=== PATIENT | male | born 1990 | race Caucasian/White ===

== ENCOUNTER 2018-04-18 08:47 | Emergency (ER) | payer MEDICAID, SELFPAY ==
[2018-04-18] VITALS (33 sets, daily range): BP systolic 114–144; BP diastolic 72–89; PULSE 64–104; RESP 10–20; TEMP 36.6; O2SAT 96–100
[2018-04-18] MEDS: Normal Saline 1,000 ML 1000 ML IV (09:00)
--- NOTE | 2018-04-18 09:18 | ED.GENADUL_ITS ---
Discharge Plan Disposition Patient Disposition: AGAINST MEDICAL ADVICE Condition: Improving Discharge Details Chief Complaint: Dizzy/Sync Clinical Impression: Lightheadedness, Numbness and tingling of right arm Reason For Visit: MING Primary Care Provider: Rocio Begum ED Provider: Nena Orozco Home Meds and New Rx's Prescriptions: Continue sumatriptan succinate [Imitrex] 50 mg tablet 50 mg PO ONCE Qty: 10 RF: 0 buspirone 15 mg tablet 15 mg PO BID Qty: 90 RF: 2 No Action amitriptyline 75 mg tablet 75 mg PO .QHS Qty: 14 RF: 0 Discharge Instructions Instructions: Transient Ischemic Attack (ED), Paresthesia (ED), Near Syncope ( ED) Additional Instructions: You have chosen to leave the emergency department AGAINST MEDICAL ADVICE. The risks of doing so are or permanent disability. You may return to the emergency department anytime if you change your mind. It is extremely important that you make an appointment to be seen by your primary care doctor within the next week in follow-up for this visit. Please return immediately to the emergency department if you develop any new or worsening symptoms or if you become otherwise concerned. Referrals: Rocio Begum MD [Primary Care Provider] - Discharge Data Discharge Date/Time-TO BE ENTERED AT DEPARTURE: 04/18/18 13:15 Medical Decision Making Davi Hope is a 27 y/o man with h/o chronic back pain, bipolar who presented to the emergency department with non-exertional lightheadedness followed by right arm tingling and headache with are on-going. On exam Pt is well and non- toxic appearing. Normal neuro exam. Cardiac murmur previously unknown to Pt. Pt' s father with stroke in 30s and again in 40s. Concern for benign syncope vs atypical CVA/TIA vs metabolic/lyte derangement vs other, low likelhood ACS. Exam /hx not c/w PE, acute aortic process, sepsis. Doubt arrhythmia given continuing sensation of lightheadedness with NSR on monitor. Plan for CT head, EKG, CXR, screening labs, IVF hydration, telemetry, likely MRI. Pt reports symptoms unchanged. CXR, CT head, labs okay. Plan for MRI. Pt requesting d/c to home, states that he feels anxious in hospitals and does not feel like waiting any longer. Lengthy discussion with Pt: risks of leaving prior to MRI, he agrees to stay for this test. MRI completed. Pt again requesting d/c to home. Does not want to stay for repeat trop, scheduling of outpt echo, holter. Lengthy discussion again re: risk of and permanent disability, and Pt continues to wish to go home at this time and would prefer to f/u as outpt. Lengthy discussion re: RTED precautions, that he may RTED at any time if he changes his mind, and importance of outpt f/u with PCP and to have echo. Medical Records Medical records reviewed: Yes I reviewed the patient's medical records. Imaging Data Radiologic Study: Attestation: I personally reviewed and interpreted this imaging study as follows: Radiologist's impression: CT BRAIN: Noncontrast. No priors. A noncontrast cranial CT was performed. The ventricular system is normal in appearance. There is no evidence of an intracranial mass lesion. There is no evidence of a subdural or epidural hematoma. No focal areas of decreased attenuation are seen. CONCLUSION: Normal noncontrast Cranial CT. MRI BRAIN: Routine noncontrast examination. Comparison CT from the same day. The ventricles and sulci are consistent with the patient's age. There is normal signal in the brain parenchyma. The diffusion weighted images are unremarkable. No intracranial hemorrhage is seen. There is a normal flow void appearance to the [place]. The pituitary gland is unremarkable. No intracranial mass, acute midline shift or mass effect is identified. The visualized paranasal sinuses are clear. IMPRESSION: Normal MRI of the brain. CHEST X-RAY: PA, lateral. Comparison 08/29/15 Heart size and pulmonary vasculature are within normal limits. The lungs are clear. No effusions are seen. No pneumothorax is identified. The bones are intact. IMPRESSION: Normal chest x-ray. Lab Data Lab results reviewed: Yes I reviewed the patient's lab results. ECG Data Attestation: I personally reviewed and interpreted this ECG (s) as follows: Interpretation: EKG shows normal sinus rhythm at 83 with normal axis, normal intervals, no acute ischemic changes, nondiagnostic EKG HPI General Mode of arrival: ambulatory . Date/Time Provider Initiated Documentation: 04/18/18 09:17 . Limitations to Documentation: no limitations . Information obtained by: patient, family, RN notes reviewed and old records reviewed . HPI Narrative: Davi Hope is a 27-year-old man with history of bipolar and chronic back pain presenting to the emergency department with episode of lightheadedness. Pt reports that he was at work, walking when he developed nausea, felt very lightheaded like he was going to faint, and squatted down. Pt reports that lightheadedness gradually improved, but has persisted somewhat and is currently on-going. He also reports right arm numbness/tingling since the event that is also on-going. He developed headache of gradual onset after event , now moderate. He has had similar headaches several times in the past but without the associated symptoms of lightheadedness/paresthesias. Not the worst headache of his life. He reports that he has been feeling somewhat tired over the past week, but has otherwise been in his usual state of health. Eating and drinking as usual. No recent travel. He has felt lightheaded in the past, but not to the extent he did earlier. He had no LOC. He denies any pain, weakness, speech change, SOB, cough, vomiting, diarrhea. Related Data Home Medications Medication Instructions Recorded Confirmed sumatriptan 50 mg tablet 50 mg PO ONCE #10 tab 02/09/18 04/18/18 buspirone 15 mg tablet 15 mg PO BID #90 tab 02/17/18 04/18/18 amitriptyline 75 mg tablet 75 mg PO .QHS #14 tab 04/22/18 04/22/18 Previous Rx's Medication Instructions Recorded sumatriptan 50 mg tablet 50 mg PO ONCE #10 tab 02/09/18 buspirone 15 mg tablet 15 mg PO BID #90 tab 02/17/18 amitriptyline 75 mg tablet 75 mg PO .QHS #14 tab 04/22/18 Allergies Allergy/AdvReac Type Severity Reaction Status Date / Time morphine Allergy Intermediate Unverified 10/26/17 11:26 General Stated Complaint: Dizzy/Sync MAYRA: 3 Review of Systems Review of Systems Constitutional: denies fevers Eyes: denies eye pain ENT: denies facial pain, dental pain, sore throat Cardiovascular: denies chest pain, edema Respiratory: denies SOB, cough GI: denies abdominal pain, vomiting, diarrhea : denies flank pain MSK: denies back pain, neck pain, arthralgias, myalgias Skin: denies rash Neuro: denies weakness, reports numbness/tingling right arm, lightheadedness, headache PFSH Family History FAMILY HISTORY Essential hypertension Personal history of malignant neoplasm Depression Cerebrovascular accident Social History Smoking/Tobacco Use Status: Current every day Exam Narrative Exam Narrative: Constitutional: well and [id number], pleasant, conversing normally HENT: head atraumatic, normocephalic normal inspection, mucous membranes moist Eyes: conjunctiva normal, sclera normal, pupils 3mm ERRLA, EOMI Neck: no stridor, normal ROM, trachea midline Chest: normal inspection Resp: normal work of breathing, LCTAB Cardio: normal rate, normal rhythm, 3/6 systolic murmur GI: abdomen soft, non-tender, non-distended Back: normal inspection, no rash Skin: warm, dry, normal color, no rash Neuro: alert, not altered, normal tone, insurance adjustor 2-12 intact, motor 5/5 throughout, no pronator drift, normal sensation to light touch b/l UEs, nl finger/nose and heel/dai, nl speech Ext: no edema Psych: normal mood, normal affect, normal behavior Course Vital Signs Temperature 36.6 C 04/18/18 08:55 Pulse 90 04/18/18 08:55 Respiratory Rate 16 04/18/18 08:55 Blood Pressure 134/72 04/18/18 08:55 Pulse Oximetry 100 04/18/18 08:55 Temperature 36.6 C 04/18/18 08:55 Temperature Source Skin 04/18/18 08:55 Pulse 90 04/18/18 08:55 Respiratory Rate 16 04/18/18 09:00 Respiratory Effort 04/18/18 09:00 Respiratory Depth Normal 04/18/18 09:00 Respiratory Pattern Normal 04/18/18 09:00 Blood Pressure 134/72 04/18/18 08:55 Blood Pressure Position Sitting 04/18/18 08:55 Pulse Oximetry 100 04/18/18 08:55 Oxygen Delivery Method Room Air 04/18/18 08:55 Oxygen Flow Rate 0 04/18/18 08:55
--- NOTE | 2018-04-18 09:42 | DI.RAD_ITS ---
SYMPTOM/DIAGNOSIS: NEAR SYNCOPE CHEST X-RAY: PA, lateral. Comparison 08/29/15 Heart size and pulmonary vasculature are within normal limits. The lungs are clear. No effusions are seen. No pneumothorax is identified. The bones are intact. IMPRESSION: Normal chest x-ray.
--- NOTE | 2018-04-18 09:43 | DI.CT_ITS ---
SYMPTOM/DIAGNOSIS: RT ARM NUMBNESS, NEAR SYNCOPE CT BRAIN: Noncontrast. No priors. A noncontrast cranial CT was performed. The ventricular system is normal in appearance. There is no evidence of an intracranial mass lesion. There is no evidence of a subdural or epidural hematoma. No focal areas of decreased attenuation are seen. CONCLUSION: Normal noncontrast Cranial CT. The findings were discussed with the Emergency Department on the date of the examination.
[2018-04-18 10:02] LABS: Absolute Basophil Count 0.06 k/cumm (0.0-0.2); Absolute Eosinophil Count 0.27 k/cumm (0.0-0.7); Absolute Lymphocyte Count 1.66 k/cumm (1.2-3.4); Absolute Monocyte Count 0.64 k/cumm (0.11-0.7); Absolute Neutrophil Count 3.91 k/cumm (1.2-6.7); Basophils % 0.9; Eosinophils % 4.1; HCT 46.5 % (40.0-50.0); HGB 15.6 g/dL (13.5-17.5); Lymphocytes % 25.4; Mean Corp. HGB Concentration 33.5 g/dL (32.0-36.0); Mean Corpuscular Hemoglobin 30.5 pg (27.0-33.0); Mean Corpuscular Volume 90.8 fL (80-95); Mean Platelet Volume 10.9 fL (8.0-11.0); Monocytes % 9.8; Neutrophils % 59.8; Platelet Count 250 x1000/uL (130-400); RBC 5.12 m/cumm (4.50-6.00); RBC Distribution Width 12.5 % (11.8-14.1); White Blood Cell Count 6.54 k/cumm (4.4-10.8)
[2018-04-18 10:23] LABS: ALT 45 U/L (12-78); AST 18 U/L (15-37); Albumin 4.1 g/dL (3.4-5.0); Alkaline Phosphatase 64 U/L (46-116); Anion Gap 8.6 mmol/L (3-11); BUN 8 mg/dL (7-18); Bilirubin, Total 0.3 mg/dL (0.2-1.0); CO2 30.4 mmol/L (21.0-32.0); CREATININE 1.04 mg/dL (0.70-1.30); Calcium 8.7 mg/dL (8.5-10.1); Chloride 103 mmol/L (98-107); Glucose 96 mg/dL (70-100); Sodium 142 mmol/L (136-145); Total Protein 7.2 g/dL (6.4-8.2)
[2018-04-18 10:30] LABS: Troponin I < 0.02 ng/mL (0.00-0.06)
--- NOTE | 2018-04-18 11:46 | DI.MRI_ITS ---
SYMPTOM/DIAGNOSIS: RUE NUMBNESS MRI BRAIN: Routine noncontrast examination. Comparison CT from the same day. The ventricles and sulci are consistent with the patient's age. There is normal signal in the brain parenchyma. The diffusion weighted images are unremarkable. No intracranial hemorrhage is seen. There is a normal flow void appearance to the [place]. The pituitary gland is unremarkable. No intracranial mass, acute midline shift or mass effect is identified. The visualized paranasal sinuses are clear. IMPRESSION: Normal MRI of the brain. The findings were discussed with Dr. Orozco of the Emergency Department on the date of the examination.
--- NOTE | 2018-04-19 10:58 | NUR.NOTE ---
Nursing Note: Reached out to patient's PCP re: AMA. Rowley at has already spoken with patient and he has an appointment to be seen on 04/22/18. LP
== END 2018-04-18 13:15 | disposition left against medical advice (07) ==
LOC: ER 13:16
PROVIDERS: Emergency Provider Student in an Organized Health Care Education/Training Program; PCP Family Medicine
DX: R42 Dizziness and giddiness (principal); R20.2 Paresthesia of skin; R51 Headache; Z53.29 Procedure and treatment not carried out because of patient's decision for other reasons
CPT/HCPCS: 36415; 80053; 93005; 96365; 96366; 99285; 70450; 70551; 71046; 84484; 85025; 93010; 99284

== ENCOUNTER 2018-12-28 01:34 | Emergency (ER) | payer MEDICAID, SELFPAY ==
--- NOTE | 2018-12-28 01:39 | ED.GENADUL_ITS ---
Discharge Plan Disposition Patient Disposition: HOME Condition: Good Discharge Details Chief Complaint: Abd Prob Clinical Impression: Enteritis Primary Care Provider: Rocio eBgum ED Provider: Yaya Ibarras and New Rx's Prescriptions: Continued sumatriptan succinate [Imitrex] 50 mg tablet 50 mg PO ONCE Qty: 10 RF: 0 buspirone 15 mg tablet 15 mg PO BID Qty: 90 RF: 2 Discharge Instructions Instructions: Abdominal Pain (ED) Additional Instructions: Laboratory studies were good tonight. CT scan is suggestive of enteritis which is likely viral in nature and should get better over the next day or 2. Drink plenty of fluids to stay hydrated and stick with a bland diet. Use Tylenol if needed for pain. Follow-up with primary care end of week if not getting better. Return to ED if you have bloody diarrhea, worsening abdominal pain, persistent vomiting, high fevers. Referrals: Rocio Begum MD [Primary Care Provider] - Medical Decision Making Young male presenting with left-sided abdominal/back pain. No urinary symptoms. No fever. Belly is actually fairly benign. Maybe some mild left CVAT. presentation not really renal colic in nature as he has more abdominal pain than back. Seems uncomfortable. Will place IV and check labs. Fluids, Zofran and Toradol ordered. CT scan ordered. Laboratory studies unremarkable. White count is normal. Potassium slightly low at 3.4. CT scan essentially unremarkable other than some evidence of some small bowel wall and mucosal thickening on the left side consistent with enteritis. Most likely viral in nature. Less likely related to Crohn's. We will have him drink fluids and stay with a bland diet for the next couple days. Follow-up with primary care at the end of the week if not better. Return to ED for worsening pain, bloody diarrhea, persistent vomiting, high fevers. Lab Data Lab results reviewed: Yes I reviewed the patient's lab results. HPI General Mode of arrival: ambulatory . Date/Time Provider Initiated Documentation: 12/28/18 01:39 . Limitations to Documentation: no limitations . Information obtained by: patient . HPI Narrative: Patient presents to ED with left-sided abdominal pain. Patient reports generalized abdominal pain starting yesterday. More localized to the left side radiating into the back. No radiation of pain into the groin or testicle. No urinary symptoms. Nausea but no vomiting. Some diarrhea this evening. No fever that he is aware of. No travel outside the [place], antibiotic use, sick contacts. Tried eating dinner tonight but really could not just because he had no appetite and it made him nauseated. Unable to sleep tonight so weak he finally came in for evaluation. He has not taken anything at home for pain. Rel ated Data Home Medications Medication Instructions Recorded Confirmed sumatriptan succinate 50 mg tablet 50 mg PO ONCE #10 tab 02/09/18 11/24/18 buspirone 15 mg tablet 15 mg PO BID #90 tab 10/13/18 11/24/18 Previous Rx's Medication Instructions Recorded sumatriptan succinate 50 mg tablet 50 mg PO ONCE #10 tab 02/09/18 buspirone 15 mg tablet 15 mg PO BID #90 tab 10/13/18 Allergies Allergy/AdvReac Type Severity Reaction Status Date / Time morphine Allergy Intermediate Verified 12/28/18 01:47 General MAYRA: 3 Review of Systems Review of Systems 03/20 Review of Systems completed and is negative except as stated above in HPI (Systems reviewed: Const, Eyes, ENT, Resp, CV, GI, , MSK, Skin, Neuro) [facility] Medical History (Updated 12/28/18 @ 01:47 by Amina Angel) Depression (Chronic) Migraine without aura and without status migrainosus, not intractable (Chronic 01/05/17) Surgical History H/O spinal fusion (Acute) Family History FAMILY HISTORY Essential hypertension Personal history of malignant neoplasm Depression Stroke Social History Smoking/Tobacco Use Status: Current every day Tobacco Type: cigarettes Alcohol Intake: current Alcohol Intake frequency: a few times a month Drug use: Daily Substance use type: marijuana Do you feel safe in your relationship?: Yes Exam Narrative Exam Narrative: Vitals: Afebrile with elevated BP. Const: WDWN male in NAD. HEENT: NC/AT. Normal facial exam. Eyes: Normal conjunctiva and sclera. Neck: Supple. Trachea midline. Lungs: Normal respiratory effort. Lungs are clear. Cor: RRR without murmur/gallop. Good radial pulses. GI: Soft. NT/ND. No guarding or rebound. Back: Left CVAT. Neuro: A+O x 3. CN grossly in tact. Good strength and no focal deficit. Ext: No C/C/E. No deformity or tenderness. Skin: Warm and dry without rash.
[2018-12-28 01:44] VITALS: BP 152/93; PULSE 84; RESP 18; TEMP 37.1; O2SAT 100
[2018-12-28] MEDS: Ketorolac 15 MG/ML VIAL IVP (02:13)
[2018-12-28] MEDS: Lactated Ringers 1,000 ML 200 ML IV (02:13)
[2018-12-28] MEDS: Ondansetron 4 MG/2 ML VIAL IVP (02:13)
[2018-12-28 02:26] LABS: Abs Immature Grans 0.01 k/cumm (0.0-0.09); Absolute Basophil Count 0.08 k/cumm (0.0-0.2); Absolute Eosinophil Count 0.42 k/cumm (0.0-0.7); Absolute Monocyte Count 0.94 k/cumm (0.11-0.7); Absolute Neutrophil Count 5.35 k/cumm (1.2-6.7); Basophils % 0.8; Eosinophils % 4.2; HCT 43.8 % (40.0-50.0); HGB 15.1 g/dL (13.5-17.5); Immature Grans % 0.1; Lymphocytes % 32.7; Mean Corp. HGB Concentration 34.5 g/dL (32.0-36.0); Mean Corpuscular Hemoglobin 30.6 pg (27.0-33.0); Mean Corpuscular Volume 88.7 fL (80-95); Mean Platelet Volume 10.2 fL (8.0-11.0); Monocytes % 9.3; Neutrophils % 52.9; Platelet Count 246 x1000/uL (130-400); RBC 4.94 m/cumm (4.50-6.00); RBC Distribution Width 12.5 % (11.8-14.1)
[2018-12-28] MEDS: Omnipaque 350 MG/ML 100 ML BTL IJ (02:35)
--- NOTE | 2018-12-28 02:35 | DI.CT_ITS ---
SYMPTOMS/DIAGNOSIS: LT SIDE ABD AND BACK PAIN CT SCAN OF THE ABDOMEN AND PELVIS: CT scan of the abdomen and pelvis was performed following the uneventful administration of intravenous contrast material. No acute findings are seen in the lung bases. There may be a small hiatal hernia. The liver is unremarkable. No mass is seen. The portal, superior mesenteric and splenic veins are patent. The gallbladder is negative. There is no biliary ductal dilatation. The pancreas, spleen, adrenal glands, kidneys, ureters and bladder are unremarkable. The reproductive organs are unremarkable. There is mild bowel wall thickening and loops of small bowel in the left abdomen suggesting enteritis. The remainder of the bowel is unremarkable. A normal appendix is present. The aorta is of normal caliber. No significant abdominal or pelvic adenopathy, ascites or pneumoperitoneum is seen. Post surgical changes are seen at L 5 and S 1. No acute osseous abnormality is identified. IMPRESSION: Findings suspicious for enteritis involving small bowel loops in the left abdomen. This may be infectious or inflammatory in nature.
[2018-12-28 02:43] LABS: ALT 30 U/L (12-78); AST 12 U/L (15-37); Albumin 4.1 g/dL (3.4-5.0); Alkaline Phosphatase 65 U/L (46-116); Anion Gap 10.9 mmol/L (3-11); BUN 12 mg/dL (7-18); Bilirubin, Total 0.2 mg/dL (0.2-1.0); CO2 27.1 mmol/L (21.0-32.0); CREATININE 0.98 mg/dL (0.70-1.30); Calcium 8.9 mg/dL (8.5-10.1); Chloride 103 mmol/L (98-107); Glucose 97 mg/dL (70-100); Lipase 61 U/L (73-393); Potassium 3.4 mmol/L (3.5-5.1); Sodium 141 mmol/L (136-145); Total Protein 7.5 g/dL (6.4-8.2)
[2018-12-28 03:13] LABS: Bilirubin Negative (Negative); Blood Negative (Negative); Clarity Clear (Clear); Glucose Negative (Negative); Ketones Negative (Negative); Leukocyte Esterase Negative (Negative); Nitrite Negative (Negative); Specific Gravity 1.015 (1.005-1.025); Urobilinogen 0.2 EU/dL (Up TO 0.2)
--- NOTE | 2018-12-28 03:26 | DI.VRAD_ITS ---
EXAM: CT Abdomen and Pelvis With Contrast EXAM DATE/TIME: 12/28/2018 2:02 AM CLINICAL HISTORY: 28 years old, male; Abdominal pain; Localized; Prior surgery; Surgery date: 6+ months; Surgery type: Back surgery; Patient HX: Left sided abdomen pain since Wednesday increasing in severity TECHNIQUE: Imaging protocol: Axial computed tomography images of the abdomen and pelvis with intravenous contrast. Coronal and sagittal reformatted images were created and reviewed. Radiation optimization: All CT scans at this facility use at least one of these dose optimization techniques: automated exposure control; mA and/or kV adjustment per patient size (includes targeted exams where dose is matched to clinical indication); or iterative reconstruction. Contrast material: OMNIPAQUE 350; Contrast volume: 100 ml; Contrast route: IV RAC; COMPARISON: No relevant prior studies available. FINDINGS: Liver: Normal. No mass. Gallbladder and bile ducts: Normal. No calcified stones. No ductal dilation. Pancreas: Normal. No ductal dilation. Spleen: Normal. No splenomegaly. Adrenals: Normal. No mass. Kidneys and ureters: Normal. No hydronephrosis. Stomach and bowel: Lack of oral contrast limits evaluation of gastrointestinal tract. Hiatal hernia. There is no evidence of intestinal perforation or obstruction. Small bowel wall and mucosal thickening in left abdomen. Appendix: No evidence of appendicitis. Intraperitoneal space: No free intraperitoneal gas. Vasculature: Normal. No abdominal aortic aneurysm. Lymph nodes: Normal. No enlarged lymph nodes. Bladder: Unremarkable as visualized. Reproductive: Unremarkable as visualized. Bones/joints: Status post L5-S1 posterior spinal fusion. Surgical hardware appears intact. Mild anterolisthesis of L5 on S1. Soft tissues: Unremarkable. IMPRESSION: Small bowel wall and mucosal thickening in left abdomen consistent with the presence of enteritis which could have an inflammatory or infectious etiology. Hiatal hernia. Dictated and Authenticated by: Derek Velasquez MD. Ordering:CARMEN Javier MD
[2018-12-28 03:31] VITALS: BP 117/72; PULSE 67; RESP 16; O2SAT 94
== END 2018-12-28 03:41 | disposition home or self-care (01) ==
PROVIDERS: Emergency Provider Emergency Medicine; PCP Family Medicine
DX: R10.12 Left upper quadrant pain (principal); R11.0 Nausea; K52.9 Noninfective gastroenteritis and colitis, unspecified
CPT/HCPCS: 36415; 80053; 83690; 96361; 96374; 96375; 99285; 74177; 81003; 85025; J1885; J2405; J3490

== ENCOUNTER 2019-02-14 09:04 | Emergency (ER) | payer OTHER, SELFPAY ==
[2019-02-14 09:10] VITALS: BP 144/89; PULSE 83; RESP 16; TEMP 33.6; O2SAT 100
--- NOTE | 2019-02-14 09:22 | ED.GENADUL_ITS ---
Discharge Plan Disposition Patient Disposition: HOME Condition: Stable Discharge Details Chief Complaint: Orthopedic Clinical Impression: Traumatic arthropathy, right hand Primary Care Provider: Rocio Begum ED Provider: Saurav Baker Home Meds and New Rx's Prescriptions: No Action sumatriptan succinate [Imitrex] 50 mg tablet 50 mg PO ONCE Qty: 10 RF: 0 buspirone 15 mg tablet 15 mg PO BID Qty: 90 RF: 2 Discharge Instructions Instructions: Arthralgia (ED) Additional Instructions: For pain control you may continue to apply ice, rest the extremity, leave splinting on, and elevate. You may take 600mg of ibuprofen along with 1000mg of Tylenol every 6 hours as needed for pain. Please rest the extremity over the next couple days and slowly advance activity as tolerated by pain and discomfort. Call the orthopedic office for arrangement of follow-up appointment and further reassessment Stand Alone Forms: Work Release Referrals: Wyatt Jones MD [ [facility] STAFF PHYSICIAN] - (Call the office for arrangement of follow-up appointment) Discharge Data Discharge Date/Time-TO BE ENTERED AT DEPARTURE: 02/14/19 10:44 Medical Decision Making Patient presenting to the emergency department chief complaint of right hand injury. Patient reports that he was at work approximately an hour prior to arrival a heavy aluminum casting fell and struck his right hand. Since then he has had decreased sensation/numbness to his fifth digit, pain with movement of the fingers. Patient denies any other injury or trauma. Physical exam shows significant amount of dorsal hand swelling, slight abrasion over the fourth metacarpal, decreased sensation from the PIP through the dorsal hand over the fourth and fifth digits and to surrounding area of trauma, cap refill appropriate but patient does have significant decreased of movement of the fifth digit. Exam is otherwise unremarkable. Plan to perform radiological imaging for evaluation of acute fracture. Review of radiological imaging shows no acute fracture noted. Patient reassessed and continues to have neuropathy and decreased range of motion of fifth digit. I feel this may be secondary to pain,'s and swelling but given neuropathy and decreased range of motion I do feel that patient should have orthopedic follow-up for reassessment. Patient placed on orthopedic list. Patient placed in universal splint to give isolation of hand. Patient given work note for 3 days off work given no signs of fracture and to return and perform duties as tolerated by discomfort. After discussion of diagnosis and plan of care patient has no further needs, questions, or concerns and states [place] ar understanding to return to the emergency department for any worsening symptoms. HPI General Mode of arrival: ambulatory . Date/Time Provider Initiated Documentation: 02/14/19 09:09 . Limitations to Documentation: no limitations . Information obtained by: patient and RN notes reviewed . History of Present Illness 28 year old M presents to the emergency department with the chief comp laint of Right hand injury, described as moderate, with intensity rated at 8. Quality is described as aching and sharp, and is localized to the right and upper extremity. Patient started experiencing this hour(s) (1) and it has been constant. Patient notes no other symptoms.. Patient did receive the following treatments prior to arrival, none Related Data Home Medications Medication Instructions Recorded Confirmed sumatriptan succinate 50 mg tablet 50 mg PO ONCE #10 tab 02/09/18 11/24/18 buspirone 15 mg tablet 15 mg PO BID #90 tab 10/13/18 11/24/18 Previous Rx's Medication Instructions Recorded sumatriptan succinate 50 mg tablet 50 mg PO ONCE #10 tab 02/09/18 buspirone 15 mg tablet 15 mg PO BID #90 tab 10/13/18 Allergies Allergy/AdvReac Type Severity Reaction Status Date / Time morphine Allergy Intermediate Verified 12/28/18 01:47 General Stated Complaint: Orthopedic MAYRA: 3 Review of Systems Cardiovascular Denies syncope Musculoskeletal Reports as per HPI, Reports numbness and Denies tingling Integumentary/Breasts Denies rash and Denies sores Neurologic Denies syncope, Reports numbness and Denies tingling [facility] Medical History Depression (Chronic) Migraine without aura and without status migrainosus, not intractable (Chronic 01/05/17) 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 (Acute) Surgical History H/O spinal fusion (Acute) Family History FAMILY HISTORY Essential hypertension Personal history of malignant neoplasm Depression Stroke Social History Smoking/Tobacco Use Status: Current every day Tobacco Type: cigarettes Alcohol Intake: current Alcohol Intake frequency: a few times a month Drug use: Occasionally Substance use type: marijuana Details: a few times a month: Do you feel safe in your relationship?: Yes Exam Const General: cooperative and no acute distress Orientation: alert, awake and oriented x3 Resp Effort & Inspection: normal respiratory effort and able to speak in complete sentences Cardio Rate: regular rate Rhythm: regular rhythm Extrem General: normal exam except as noted Right upper extremity: hand Details: normal capillary refill, neuromotor exam normal Details: wrist extension normal, thumb opposition normal, thumb IP fl exion normal and thumb ADduction normal, neuromotor exam abnormal Details: fingers 2-5 ABduction abnormal Details: absent (Fifth digit) and limited by p ain, tenderness Location: of the dorsal hand Location: over the 4th metacarpal and over the 5th metacarpal, abnormal ROM of finger Details: unable to flex or extend Location: of the 5th digit, swelling Location: of the dorsal hand Location: over the ulnar aspect and abrasion Location: of the dorsal hand Location: over the 4th metacarpal; no lacerations and no puncture wound Course Vital Signs Temperature 33.6 C L 02/14/19 09:10 Pulse 83 02/14/19 09:10 Respiratory Rate 16 02/14/19 09:10 Blood Pressure 144/89 H 02/14/19 09:10 Pulse Oximetry 100 02/14/19 09:10 Temperature 33.6 C L 02/14/19 09:10 Pulse 83 02/14/19 09:10 Respiratory Rate 16 02/14/19 09:10 Respiratory Effort Non-Labored 02/14/19 09:13 Blood Pressure 144/89 H 02/14/19 09:10 Blood Pressure Position Supine 02/14/19 09:10 Pulse Oximetry 100 02/14/19 09:10 Oxygen Delivery Method Room Air 02/14/19 09:10 Oxygen Flow Rate 0 02/14/19 09:10 Pain Level 8 02/14/19 09:16
[2019-02-14] MEDS: Acetaminophen 500 MG TAB 1000 MG PO (09:30)
[2019-02-14] MEDS: Ibuprofen 600 MG TAB PO (09:30)
--- NOTE | 2019-02-14 09:37 | NUR.NOTE ---
Nursing Note: pt walked to DI
--- NOTE | 2019-02-14 09:56 | DI.RAD_ITS ---
SYMPTOM/DIAGNOSIS: BLUNT TRAUMA, 4TH, 5TH METACARPAL RIGHT HAND: 02/14 Three views were obtained. Note is made of a mild ulnar minus variance and there is an accessory ossicle of the ulnar styloid No acute fracture is seen.
== END 2019-02-14 10:44 | disposition home or self-care (01) ==
PROVIDERS: Emergency Provider Nurse Practitioner Family; PCP Family Medicine
DX: M12.541 Traumatic arthropathy, right hand (principal); W22.8XXA Striking against or struck by other objects, initial encounter
CPT/HCPCS: 99283; 73130; 99282; L3908

== ENCOUNTER 2019-05-13 20:36 | Emergency (ER) | payer MEDICAID, SELFPAY ==
[2019-05-13 20:40] VITALS: BP 132/78; PULSE 78; RESP 17; TEMP 36.8; O2SAT 98
--- NOTE | 2019-05-13 20:59 | ED.GENADUL_ITS ---
Discharge Plan Disposition Patient Disposition: HOME Condition: Good Discharge Details Clinical Impression: Esophageal foreign body Primary Care Provider: Rocio Begum ED Provider: Fan Jose Home Meds and New Rx's Prescriptions: New omeprazole 40 mg capsule,delayed release(DR/EC) 40 mg PO BID Qty: 60 RF: 0 No Action penicillin V potassium 500 mg tablet 500 mg PO Q8H Qty: 30 RF: 0 sumatriptan succinate [Imitrex] 50 mg tablet 50 mg PO ONCE Qty: 10 RF: 0 buspirone 15 mg tablet 15 mg PO BID Qty: 90 RF: 2 Discharge Instructions Instructions: Esophageal Foreign Body (ED) Additional Instructions: Thankfully your foreign body in your throat has passed. It is vitally important over the next few days that you do not eat anything large, stick with a liquid diet, chew all of your food significantly. Drink plenty of fluids. We will schedule an outpatient surgical referral for you on Wednesday, they will contact you for this appointment, but please also contact their office Wednesday morning. If you notice any worsening of your symptoms, or any new symptoms such as vomiting, diarrhea, fever, chills, shortness of breath, chest pain, numbness, weakness, or fainting , please return immediately to the emergency department for reevaluation. Please follow up with your primary care provider as soon as possible for reassessment and reevaluation. As always, it was a pleasure participating in your medical care today. Referrals: Korina Fine MD [ [facility] STAFF PHYSICIAN] - Medical Decision Making This is a 28-year-old male who presents today for evaluation of susp ected esophageal foreign body. 6 hours ago he is eating some form of meat, when it felt like it got stuck in his throat. He has been unable to tolerate p.o. since then. Physical exam is otherwise unremarkable. No red flags of weight loss or history of cancer. He does have a history of tobacco abuse so in the past. He denies any significant alcohol intake, or any history of significant hot fluid intake. We will give effervescent crystals and glucagon, I have contacted Dr. Lamas and informed her of the case. Patient will require EGD if no success with oral and glucagon treatment. 10:20 PM After 2 rounds of effervescent crystals and glucagon the patient has had resolution of his symptoms. He is able to tolerate both liquids and solids. He is feeling much better and is very thankful for the radha crackers that he is now able to consume. I discussed this with Dr. Lamas, she does request that he follows up closely on Wednesday for reassessment. We will start the patient on a PPI. Discussed the importance of avoiding any solids for the next few days, and sticking with liquids and chewing his food significantly. I have extensively reviewed the treatment plan and discharge instructions with the patient. I have addressed all patient concerns at this time. The patient was made aware of what symptoms to monitor for that would warrant a return to the emergency department. Discussed the plan with the patient, they demonstrate verbal understanding and agreement with our assessment and plan at this time. HPI General Date/Time Provider Initiated Documentation: 05/13/19 20:49 . HPI Narrative: This is a 28-year-old male with no significant past medical history who presents today for evaluation of suspected esophageal foreign body. Patient states that 6 hours ago he was eating some form of meat, and he was felt like it got stuck in his throat. Since then he has been unable to tolerate any liquids or solids whatsoever. He immediately spits up/vomits every time he takes anything p.o. He denies any history of this in the past. He did used to smoke and chew. He denies any history of cancer, recent weight loss, fever or chills. He has no other complaints at this time. No other modifying factors. Related Data Home Medications Medication Instructions Recorded Confirmed sumatriptan succinate 50 mg tablet 50 mg PO ONCE #10 tab 02/09/18 04/14/19 buspirone 15 mg tablet 15 mg PO BID #90 tab 02/20/19 04/14/19 penicillin V potassium 500 mg 500 mg PO Q8H #30 tab 04/14/19 04/14/19 tablet omeprazole 40 mg PO BID #60 cap 05/13/19 Previous Rx's Medication Instructions Recorded sumatriptan succinate 50 mg tablet 50 mg PO ONCE #10 tab 02/09/18 buspirone 15 mg tablet 15 mg PO BID #90 tab 02/20/19 penicillin V potassium 500 mg 500 mg PO Q8H #30 tab 04/14/19 tablet omeprazole 40 mg PO BID #60 cap 05/13/19 Allergies Allergy/AdvReac Type Severity Reaction Status Date / Time morphine Allergy Intermediate Verified 04/14/19 15:15 General MAYRA: 3 Review of Systems All systems reviewed & are unremarkable except as noted in HPI and below PFSH Social History Smoking/Tobacco Use Status: Current every day Tobacco Type: cigarettes Alcohol Intake: current Alcohol Intake frequency: a few times a month Drug use: Occasionally Substance use type: marijuana Details: a few times a month: Do you feel safe in your relationship?: Yes Exam Narrative Exam Narrative: 1.Const: Well-nourished, Well-developed, appearing stated age 2.Eyes: PERRL, no conjunctival injection, and symmetrical lids. 3.ENT: Atraumatic external nose and ears. Moist MM. Neck: Symmetric, trachea midline, No thyromegaly. Trachea midline, no abnormalities in posterior oropharynx. No signs of airway compromise. 4.CVS: +S1/S2, No murmurs or gallops. Peripheral pulses 2+ and equal in all extremities. Brisk capillary refill in all extremities. 5.RESP: Unlabored respiratory effort. Clear to auscultation bilaterally. No wheezes rales or rhonchi 6.GI: Soft, Nontender/Nondistended, No hepatosplenomegaly. No guarding or rebound. 7.MSK: Normocephalic/Atraumatic, Extremities w/o deformity or ttp No cyanosis or clubbing, Normal movement of all extremities 8.Skin: Warm, Dry. No rashes or lesions. 9.Neuro: detective private eye II-XII grossly intact. Sensation grossly intact, no focal neurologic deficits. 10.Psych: (AAO) x3. Appropriate mood and affect
[2019-05-13] MEDS: Potassium Bicarbonate/Cit AC 25 MEQ TABLET.EFF PO (21:15)
[2019-05-13] MEDS: Normal Saline 1,000 ML 1000 ML IV (21:15)
[2019-05-13] MEDS: Ondansetron 4 MG/2 ML VIAL IVP (21:15)
[2019-05-13 22:17] LABS: Abs Immature Grans 0.01 k/cumm (0.0-0.09); Absolute Basophil Count 0.08 k/cumm (0.0-0.2); Absolute Eosinophil Count 0.38 k/cumm (0.0-0.7); Absolute Lymphocyte Count 2.44 k/cumm (1.2-3.4); Absolute Monocyte Count 0.76 k/cumm (0.11-0.7); Absolute Neutrophil Count 5.69 k/cumm (1.2-6.7); Basophils % 0.9; Eosinophils % 4.1; HCT 45.3 % (40.0-50.0); HGB 15.5 g/dL (13.5-17.5); Immature Grans % 0.1; Lymphocytes % 26.1; Mean Corp. HGB Concentration 34.2 g/dL (32.0-36.0); Mean Corpuscular Hemoglobin 30.5 pg (27.0-33.0); Mean Platelet Volume 10.2 fL (8.0-11.0); Monocytes % 8.1; Neutrophils % 60.7; Platelet Count 278 x1000/uL (130-400); RBC 5.09 m/cumm (4.50-6.00); RBC Distribution Width 12.5 % (11.8-14.1); White Blood Cell Count 9.36 k/cumm (4.4-10.8)
[2019-05-13 22:25] LABS: ALT 39 U/L (16-63); AST 21 U/L (15-37); Albumin 4.3 g/dL (3.4-5.0); Alkaline Phosphatase 62 U/L (46-116); Anion Gap 8.8 mmol/L (3-11); BUN 9 mg/dL (7-18); Bilirubin, Total 0.4 mg/dL (0.2-1.0); CO2 31.2 mmol/L (21.0-32.0); CREATININE 1.04 mg/dL (0.70-1.30); Calcium 9.5 mg/dL (8.5-10.1); Chloride 102 mmol/L (98-107); Glucose 99 mg/dL (74-106); Potassium 3.3 mmol/L (3.5-5.1); Sodium 142 mmol/L (136-145); Total Protein 7.8 g/dL (6.4-8.2)
== END 2019-05-13 22:35 | disposition home or self-care (01) ==
PROVIDERS: Emergency Provider Student in an Organized Health Care Education/Training Program; PCP Family Medicine
DX: T18.128A Food in esophagus causing other injury, initial encounter (principal)
CPT/HCPCS: 36415; 80053; 86850; 86900; 86901; 96361; 96374; 96375; 99284; 85025; 99283; J1610; J2405

== ENCOUNTER 2019-08-17 09:14 | Emergency (ER) | payer MEDICAID, SELFPAY ==
[2019-08-17 09:18] VITALS: BP 149/98; PULSE 96; RESP 14; TEMP 36.6; O2SAT 99
--- NOTE | 2019-08-17 09:49 | W.ED.GENAD ---
Discharge Plan Disposition Patient Disposition: HOME Condition: Stable Discharge Details Chief Complaint: RespSymp Clinical Impression: 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 Primary Care Provider: Rocio Begum ED Provider: Vivi Ariza Home Meds and New Rx's Prescriptions: Continued buspirone 15 mg tablet 15 - 30 mg PO BID Qty: 90 RF: 2 omeprazole 40 mg capsule,delayed release(DR/EC) 40 mg PO BID Qty: 60 RF: 0 Discharge Instructions Instructions: Strep Throat (ED) Additional Instructions: Gargle with warm salt water up to 3 times a day as needed. Please take Tylenol or Ibuprofen with food every 4-6 hours as needed for pain and swelling. Follow up with primary care provider in 3-5 days. Return to ED sooner if any worsening or concerns. Increase oral fluids. Your tested positive for strep throat at this time please limit contact with other people. . Stand Alone Forms: Work Release Referrals: Rocio Begum MD [Primary Care Provider] - Medical Decision Making 21-year-old male presents with URI type symptoms x2 weeks. Patient states headache throat pain intermittent ear pain and cough. Denies recent travel or in contact with anyone with recent travel. Reports some nausea no vomiting or diarrhea some generalized abdominal pain. 0958: Patient tested positive for strep throat discussed options for treatment patient opted for injection at this time. Discussed home care, verbalized understanding. Patient received 1,200,000 units of Bicillin IM prior to discharge discussed gargling with warm salt water, taking Tylenol and ibuprofen as needed for pain and fever. And given a work note for 3 days. Verbalized understanding. Lab Data Lab results reviewed: Yes I reviewed the patient's lab results. HPI General Mode of arrival: ambulatory. Date/Time Provider Initiated Documentation: 08/17/19 09:17. Limitations to Documentation: no limitations. Information obtained by: patient. HPI Narrative: 21-year-old male presents with URI type symptoms x2 weeks. Patient states headache throat pain intermittent ear pain and cough. Denies recent travel or in contact with anyone with recent travel. Reports some nausea no vomiting or diarrhea some generalized abdominal pain. Related Data Home Medications Medication Instructions Recorded Confirmed omeprazole 40 mg PO BID #60 cap 05/13/19 08/17/19 buspirone 15 mg tablet 15 - 30 mg PO BID #90 tab 07/08/19 08/17/19 Previous Rx's Medication Instructions Recorded omeprazole 40 mg PO BID #60 cap 05/13/19 buspirone 15 mg tablet 15 - 30 mg PO BID #90 tab 07/08/19 Allergies Allergy/AdvReac Type Severity Reaction Status Date / Time morphine Allergy Intermediate Verified 08/17/19 09:23 General Stated Complaint: RespSymp MAYRA: 4 Review of Systems Narrative: Constitutional: Negative for weight loss, alert and oriented, well groomed, normal body habitus, appears comfortable. HEENT: Denies trauma, blurry vision, trouble swallowing. Positive headaches, sore throat, runny nose. Chest: Denies chest pain, palpitations, irregular rhythm, hypertension. Respiratory: Denies Shortness of breath, hemoptysis. Positive nonproductive cough. GI: Denies vomiting, diarrhea, constipation. Generalized abdominal pain and nausea : Denies dysuria, hematuria, flank pain, rectal bleeding. Neuro: Denies dizziness, blurry vision, weakness, syncope, headache or facial numbness. Hematologic: Denies easy bruising, intolerance to heat or cold, hair loss. [facility] Medical History Depression (Chronic) Migraine without aura and without status migrainosus, not intractable (Chronic 01/05/17) 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 (Acute) Surgical History H/O spinal fusion (Acute) Family History FAMILY HISTORY Essential hypertension Personal history of malignant neoplasm Depression Stroke Social History Smoking/Tobacco Use Status: Current every day Tobacco Type: cigarettes Alcohol Intake: current Alcohol Intake frequency: a few times a month Drug use: Occasionally Substance use type: marijuana Details: a few times a month: Do you feel safe at home: Yes Do you feel safe in your relationship?: Yes Exam Narrative Exam Narrative: Constitutional: Allert and oriented x3. Appears stated age. Normal body habitus. Head: Normocephalic, no trauma. Eyes: Pupils PERRLA, Red reflex noted, EOM's intact. Eyelids symmetrical withour lesions, discharge, or swelling. ENT: Bilateral TM's WNL, External ear normal to inspection, no mastoid TTP, swelling, or erythema, Nasal turbinates WNL, no nasal discharge. Normal dentition, Posterior pharynx erythemic, no exudate. Chest: RRR, Normal S1, S2, distal pulses intact. Resp: Lungs clear to auscultation bilaterally, no wheezes, rales, or rhonchi. Musculoskeletal: Normal gait, 5/5 strength to all four extremities. Skin: No suspicious rashes or lesions. Capillary refill ?2 sec. Neurologic: Cranial nerves II-XII intact. Alert and oriented x 3. DTR's intact. Hematologic/Lymphatic: No ecchymosis, no lymphadenopathy. Course Vital Signs Vital signs: Vital Signs Temperature 36.6 C 08/17/19 09:18 Pulse 96 H 08/17/19 09:18 Respiratory Rate 14 08/17/19 09:18 Blood Pressure 149/98 H 08/17/19 09:18 Pulse Oximetry 99 08/17/19 09:18 Temperature 36.6 C 08/17/19 09:18 Temperature Source Skin 08/17/19 09:18 Pulse 96 H 08/17/19 09:18 Respiratory Rate 14 08/17/19 09:18 Respiratory Effort 08/17/19 09:25 Respiratory Depth Shallow 08/17/19 09:25 Blood Pressure 149/98 H 08/17/19 09:18 Pulse Oximetry 99 08/17/19 09:18 Oxygen Delivery Method Room Air 08/17/19 09:18 Oxygen Flow Rate 0 08/17/19 09:18 Comment has not taken any meds for symptoms 08/17/19 09:18 Lab/Test Results Lab/Test Results: 08/17/19 09:35 Nasopharynx Influenza Types A,B Antigen - Pending POC Strep Test-FIDELIA(Rapid) Start: 08/17/19 09:28 Freq: .Rapid Strep Test Status: Active Protocol: Document 08/17/19 09:48 CT (Rec: 08/17/19 09:48 CT [id number]) Strep test-FIDELIA(Rapid)-POC POC-Strep test-FIDELIA (Rapid) Positive POC-Strep test-FIDELIA (Rapid) Positive
[2019-08-17 10:11] VITALS: BP 126/80; PULSE 76; RESP 17; TEMP 36.6; O2SAT 98
== END 2019-08-17 10:19 | disposition home or self-care (01) ==
PROVIDERS: Emergency Provider Registered Nurse Emergency; PCP Family Medicine
DX: J02.0 Streptococcal pharyngitis (principal); F17.210 Nicotine dependence, cigarettes, uncomplicated
CPT/HCPCS: 87449; 87880; 96372; 99284; 99283; J0561

== ENCOUNTER 2019-09-14 10:07 | Outpatient (CLI) | payer MEDICAID, SELFPAY ==
[2019-09-17 12:34] LABS: SARS-CoV-2 RNA Undetected (Undetected); SARS-CoV-2 Specimen Source Nasopharynx
== END 2019-09-14 10:27 ==
PROVIDERS: PCP Family Medicine; Visit Provider Family Medicine
DX: Z11.59 Encounter for screening for other viral diseases (principal)
CPT/HCPCS: U0003

== ENCOUNTER 2019-12-16 23:23 | Emergency (ER) | payer MEDICAID, SELFPAY ==
[2019-12-16 23:27] VITALS: BP 161/97; PULSE 87; RESP 16; TEMP 36.7; O2SAT 99
--- NOTE | 2019-12-16 23:30 | DI.CT_ITS ---
EXAM: CT ABDOMEN PELVIS W CLINICAL HISTORY: Right-sided abdominal pain TECHNIQUE: COMPARISON: CT CT ABDOMEN PELVIS W from 12/28/2018 FINDINGS: CT examination of the abdomen and pelvis was performed with bolus infusion of 100 cc of Omnipaque 350 . Images obtained through the lung bases are unremarkable. The liver and spleen appear normal as does the pancreas. Gallbladder and bile ducts are unremarkable. Adrenals appear normal bilaterally. Kidneys appear normal with no evidence of renal mass, hydronephro sis, or nephrolithiasis There is no evidence of abdominal or pelvic adenopathy. Abdominal aorta is of normal diameter and no major vascular abnormality is seen. Appendix is normal. No evidence diverticulitis or bowel obstruction. No significant abdominal wall hernia seen. Impression: Negative examination of the abdomen and pelvis. RADIATION DOSE DELIVERED: Total DLP DATA REPOSITORY: All CT scans at this facility are submitted to the National Radiology Data Registry (NRDR) Dose Index Registry (DIR) with the [employer] (ACR). RADIATION OPTIMIZATION: All CT scans at this facility use at least one of these dose optimization te chniques: automated exposure control; mA and/or kV adjustment per patient size (includes targeted exa ms where dose is matched to clinical indication); or iterative reconstruction.
--- NOTE | 2019-12-16 23:33 | ED.GENADUL_ITS ---
Discharge Plan Disposition Patient Disposition: HOME Condition: Good Discharge Details Chief Complaint: Abd Prob Clinical Impression: Mesenteric adenitis Primary Care Provider: Rocio Begum ED Provider: Yaya Ibarra Home Meds and New Rx's Prescriptions: Continued buspirone 30 mg tablet 30 mg PO BID Qty: 60 RF: 1 omeprazole 40 mg capsule,delayed release(DR/EC) 40 mg PO BID Qty: 60 RF: 0 Discharge Instructions Instructions: Mesenteric Adenitis (ED) Additional Instructions: Home to rest for the weekend. Plenty of fluids to stay hydrated. Milam diet for now. Zofran tablets if needed for nausea. Tylenol or Motrin if needed for discomfort. Follow-up with primary care next week if not feeling better. Return to ED for worsening abdominal pain, persistent vomiting, bloody diarrhea, high fever. Referrals: Rocio Begum MD [Primary Care Provider] - Discharge Data Discharge Date/Time-TO BE ENTERED AT DEPARTURE: 12/17/19 00:55 Medical Decision Making <ABRAHAM Ramesh - Last Filed: 12/17/19 16:10> 29-year-old gentleman with diffuse abdominal pain, nausea, vomiting starting yesterday evening, worsening throughout the day, now worse in the right side. Reports lack of appetite but did eat dinner, eating did not make his symptoms worse. He denies any diarrhea, constipation, dysuria, hematuria, pain in his testicles. Contacted his primary care provider told to come to the ER to rule out appendicitis. Differential includes but not excluded to appendicitis, cholecystitis, UTI, renal stone, gastritis, SBO, etc. Given his lack of urinary symptoms, I believe that a CT with contrast for rule out appendicitis is appropriate compared to a CT without contrast. He denies any nausea at this time. Will obtain IV access, give IV fluid, obtain CBC, CMP, lipase, alcohol level, urinalysis, CT with contrast. Patient is comfortable this plan and has no additional questions or concerns. Patient now reports nausea, 4 mg IV Zofran given Medical Records Medical records reviewed: Yes I reviewed the patient's medical records. <Yaya Ibarra MD - Last Filed: 12/17/19 00:53> Patient discussed with me by ABRAHAM Boyle. Agree with evaluation and management as documented. Patient signed out to me pending labs and CAT scan. Labs are unremarkable. Slight elevated white count. Negative urine. CT scan of abdomen pelvis shows a normal appendix. There is some adenopathy in the right lower quadrant consistent with mesenteric adenitis. Discussed findings with patient. Home to rest, plenty of fluids, bland diet, Tylenol or Motrin for discomfort. Zofran for nausea. Follow-up with primary care next week if not better. Return to ED for persistent vomiting, worsening abdominal pain, bloody diarrhea, other concerns. Lab Data Lab results reviewed: Yes I reviewed the patient's lab results. HPI <ABRAHAM Ramesh - Last Filed: 12/17/19 16:10> General Mode of arrival: ambulatory . Date/Time Provider Initiated Documentation: 12/16/19 23:31 . Limitations to Documentation: no limitations . Information obtained by: patient . HPI Narrative: 29-year-old gentleman with history of chronic back pain, sciatica, current smoker, presents with abdominal pain that was more diffuse, mild last night, now moderate today and worse on the right side. He reports nausea and vomiting, did vomit last night, denies nausea at the moment. He initially told me that he did not have a strong appetite but he did eat to cheeseburgers, chips, and had 2 beers for dinner this evening. Patient reports it was hot today and unsure whether or not he may have had a fever. He denies chest pain, shortness of breath, diarrhea, constipation, dysuria or hematuria. No pain radiating down into his testicles or scrotum. Denies recent travel, bad food exposure, recent sick contacts. He reached out to his primary care office this evening and was told to come to the ER to rule out appendicitis. Has never had any abdominal surgery. Related Data Home Medications Medication Instructions Recorded Confirmed omeprazole 40 mg PO BID #60 cap 05/13/19 08/17/19 buspirone 30 mg tablet 30 mg PO BID #60 tab 11/29/19 Previous Rx's Medication Instructions Recorded omeprazole 40 mg PO BID #60 cap 05/13/19 buspirone 30 mg tablet 30 mg PO BID #60 tab 11/29/19 Allergies Allergy/AdvReac Type Severity Reaction Status Date / Time morphine Allergy Intermediate Verified 08/17/19 09:23 General Stated Complaint: Abd Prob MAYRA: 3 Review of Systems <ABRAHAM Ramesh - Last Filed: 12/17/19 16:10> Constitutional Constitutional: Denies fatigue, Reports fever(s) (Subjectively) and Reports poor appetite (But did eat 2 cheeseburgers) ENT Ears, Nose, Mouth, and Throat: Denies sore throat Cardiovascular Cardiovascular: Denies chest pain and Denies dyspnea Respiratory Respiratory: Denies cough, Denies dyspnea and Denies wheezing Gastrointestinal Gastrointestinal: Reports abdominal pain, Denies constipation, Denies diarrhea, Reports nausea and Reports vomiting Genitourinary Genitourinary: Denies dysuria and Denies testicular pain Musculoskeletal Musculoskeletal: Reports back pain (Chronic), Denies numbness and Denies tingling Integumentary/Breasts Skin/Breast: Denies rash Neurologic Neurologic: Denies numbness and Denies tingling Endocrine Endocrine: Denies fatigue Allergic/Immunologic Allergic/Immunologic: Denies wheezing PFSH <ABRAHAM Ramesh - Last Filed: 12/17/19 16:10> Medical History Depression (Chronic) Migraine without aura and without status migrainosus, not intractable (Chronic 01/05/17) 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 (Acute) Surgical History H/O spinal fusion (Acute) Family History FAMILY HISTORY Essential hypertension Personal history of malignant neoplasm Depression Stroke Social History Smoking/Tobacco Use Status: Current every day Tobacco Type: cigarettes Alcohol Intake: current Alcohol Intake frequency: a few times a month Drug use: Occasionally Substance use type: marijuana Details: a few times a month: Do you feel safe at home: Yes Do you feel safe in your relationship?: Yes Exam <ABRAHAM Ramesh - Last Filed: 12/17/19 16:10> Const General: cooperative, healthy appearing, comfortable and no acute distress Orientation: alert, awake and oriented x3 HENMT Head: normal to inspection, normocephalic and atraumatic Mouth: moist mucous membranes Throat: posterior oropharynx normal Eyes Conjunctivae: conjunctivae normal Sclera: sclerae normal Neck Neck: normal visual inspection, full ROM, trachea midline, supple and nontender Resp Effort & Inspection: normal respiratory effort and able to speak in complete sentences Auscultation: clear to auscultation bilaterally Cardio Rate: regular rate Rhythm: regular rhythm GI Inspection: normal to inspection Palpation: soft, not firm, no guarding, not rigid and tender in the RLQ and in the RUQ Auscultation: normal bowel sounds Back/Spine/Pelvis Back: No back tenderness Skin General skin exam: no rashes or lesions noted Neuro General: patient alert, patient awake, moves all extremities and no focal motor deficits Gait: normal gait Sensory Exam: no sensory deficits noted Psych Appearance: grossly normal Mental Status: mental status grossly normal Course <ABRAHAM Ramesh - Last Filed: 12/17/19 16:10> Vital Signs Vital signs: Vital Signs Temperature 36.7 C 12/16/19 23:27 Pulse 87 12/16/19 23:27 Respiratory Rate 16 12/16/19 23:27 Blood Pressure 161/97 H 12/16/19 23:27 Pulse Oximetry 99 12/16/19 23:27 Temperature 36.7 C 12/16/19 23:27 Pulse 87 12/16/19 23:27 Respiratory Rate 16 12/16/19 23:27 Respiratory Effort 12/16/19 23:30 Blood Pressure 161/97 H 12/16/19 23:27 Blood Pressure Position Sitting 12/16/19 23:27 Pulse Oximetry 99 12/16/19 23:27 Oxygen Delivery Method Room Air 12/16/19 23:27 Oxygen Flow Rate 0 12/16/19 23:27 Sign Out <ABRAHAM Ramesh - Last Filed: 12/17/19 16:10> Sign Out Data: Sign Out Comment: Presents for right-sided abdominal pain worsening over the past 24 hours. Sent in for appendicitis rule out. At the time of signout blood work and CT pending. Last updated by Jonathan Boyle PA at 12/16/19 23:42
[2019-12-16 23:40] LABS: Bilirubin Negative (Negative); Blood Negative (Negative); Clarity Sl Cloudy (Clear); Glucose Negative (Negative); Ketones Negative (Negative); Leukocyte Esterase Negative (Negative); Nitrite Negative (Negative); Specific Gravity 1.025 (1.005-1.025); Urobilinogen 0.2 EU/dL (Up TO 0.2)
[2019-12-16 23:46] LABS: Abs Immature Grans 0.01 k/cumm (0.0-0.09); Absolute Eosinophil Count 0.85 k/cumm (0.0-0.7); Absolute Lymphocyte Count 3.32 k/cumm (1.2-3.4); Absolute Monocyte Count 0.99 k/cumm (0.11-0.7); Absolute Neutrophil Count 6.87 k/cumm (1.2-6.7); Basophils % 0.7; HCT 43.3 % (40.0-50.0); HGB 15.1 g/dL (13.5-17.5); Immature Grans % 0.1 %; Lymphocytes % 27.4; Mean Corp. HGB Concentration 34.9 g/dL (32.0-36.0); Mean Corpuscular Hemoglobin 30.9 pg (27.0-33.0); Mean Corpuscular Volume 88.5 fL (80-95); Mean Platelet Volume 9.7 fL (8.0-11.0); Monocytes % 8.2; Neutrophils % 56.6; Platelet Count 257 x1000/uL (130-400); RBC 4.89 m/cumm (4.50-6.00); RBC Distribution Width 12.8 % (11.8-14.1); White Blood Cell Count 12.13 k/cumm (4.4-10.8)
[2019-12-16] MEDS: Normal Saline 1,000 ML 1000 ML IV (23:47)
[2019-12-16] MEDS: Ondansetron 4 MG/2 ML VIAL IVP (23:48)
[2019-12-16 23:50] LABS: Absolute Basophil Count 0.08 k/cumm (0.0-0.2)
[2019-12-17] LABS: ALT 51 U/L (16-63); AST 20 U/L (15-37); Albumin 4.1 g/dL (3.4-5.0); Alkaline Phosphatase 57 U/L (46-116); Anion Gap 10.9 mmol/L (3-11); BUN 13 mg/dL (7-18); Bilirubin, Total 0.2 mg/dL (0.2-1.0); CO2 27.1 mmol/L (21.0-32.0); CREATININE 1.19 mg/dL (0.70-1.30); Calcium 8.9 mg/dL (8.5-10.1); Chloride 103 mmol/L (98-107); Glucose 116 mg/dL (74-106); Lipase 69 U/L (73-393); Potassium 3.4 mmol/L (3.5-5.1); Sodium 141 mmol/L (136-145); Total Protein 7.3 g/dL (6.4-8.2)
[2019-12-17 00:09] LABS: Prothrombin Time 9.9 sec (9.3-11.0)
[2019-12-17] MEDS: Normal Saline - Diluent 50 ML VIAL IV (00:23)
[2019-12-17] MEDS: Omnipaque 350 MG/ML 100 ML BTL IJ (00:23)
[2019-12-17 00:39] LABS: ETHANOL BLOOD < 3.0 mg/dL (<3)
--- NOTE | 2019-12-17 00:41 | DI.VRAD_ITS ---
PROCEDURE INFORMATION: Exam: CT Abdomen And Pelvis With Contrast Exam date and time: 12/16/2019 11:33 PM Age: 29 years old Clinical indication: Localized; Prior surgery; Patient HX: Right-sided abdominal pain TECHNIQUE: Imaging protocol: Computed tomography of the abdomen and pelvis with intravenous contrast. COMPARISON: CT ABDOMEN PELVIS W 12/28/2018 2:27 AM FINDINGS: Liver: Normal. No mass. Gallbladder and bile ducts: Normal. No calcified stones. No ductal dilation. Pancreas: Normal. No ductal dilation. Spleen: Normal. No splenomegaly. Adrenals: Normal. No mass. Kidneys and ureters: Normal. No hydronephrosis. Stomach and bowel: The stomach is normal. No dilated loops of small bowel or colonic dilatation. No bowel wall thickening or mucosal abnormalities. Appendix: Normal appendix. Intraperitoneal space: Unremarkable. No free air. No significant fluid collection. Vasculature: Unremarkable. No abdominal aortic aneurysm. Lymph nodes: No adenopathy. Scattered prominent right lower quadrant mesenteric lymph nodes. Bladder: Unremarkable as visualized. Reproductive: Unremarkable as visualized. Bones/joints: Prior lumbar spines fusion surgery. Soft tissues: Unremarkable. IMPRESSION: Scattered prominent lymph nodes in right lower quadrant mesentery as could be seen with mesenteric adenitis. Dictated and Authenticated by: Derek Velasquez MD. Ordering:DEMETRIUS Castillo MD
[2019-12-17 00:57] VITALS: BP 132/81; PULSE 78; RESP 16; O2SAT 99
[2019-12-17] MEDS: Ondansetron O.D.T. 4 MG TABEF, 3 TABS/BTL PO (00:57)
== END 2019-12-17 00:55 | disposition home or self-care (01) ==
PROVIDERS: Physician Assistant; Emergency Provider Emergency Medicine; PCP Family Medicine
DX: I88.0 Nonspecific mesenteric lymphadenitis (principal); R11.2 Nausea with vomiting, unspecified; R10.31 Right lower quadrant pain
CPT/HCPCS: 36415; 80053; 83690; 96361; 96374; 99285; 74177; 80320; 81003; 85025; 85610; J2405; J3490

== ENCOUNTER 2020-03-05 22:40 | Emergency (ER) | payer MEDICAID, SELFPAY ==
--- NOTE | 2020-03-05 22:41 | ED.GENADUL_ITS ---
Discharge Plan Disposition Patient Disposition: HOME Condition: Good Discharge Details Clinical Impression: Contusion of knee Primary Care Provider: Rocio Begum ED Provider: Carolina Cevallos Home Meds and New Rx's Prescriptions: Continued buspirone 30 mg tablet 30 mg PO BID Qty: 60 RF: 1 omeprazole 40 mg capsule,delayed release(DR/EC) 40 mg PO BID Qty: 60 RF: 0 Discharge Instructions Instructions: Contusion in Adults (ED) Additional Instructions: Encourage rest, ice, elevation. Tylenol and/or ibuprofen as needed for discomfort. Please continue with brace while pain persist. Please follow-up with primary care in 1 to 2 weeks for reevaluation of the knee. At this time, your imaging is reassuring. I did have a limited exam secondary her pain I am hoping her primary care will be able to evaluate this further. If you develop any new or worsening symptoms please seek care urgently once again. Referrals: Rocio Begum MD [Primary Care Provider] - Discharge Data Discharge Date/Time-TO BE ENTERED AT DEPARTURE: 03/06/20 00:20 Medical Decision Making Patient is a pleasant 29-year-old male presents imaging of the left knee pain. Reports 1 week ago he was playing on a playground when he struck his knee against a metal pole. Since that time is been having anterior patellar pain. Also noticed some more minimal pain medial and lateral. Difficulty with ambulation etc. increase discomfort. Did not find any relief with Tylenol or ibuprofen's was never taken anything for this. Pain is not been limiting his ability to perform his ADLs. No previous surgery or injury to this knee historically. On exam, patient does appear to be. He has faint ecchymosis appears to be resolving on the anterior aspect of the patella. No effusion. Limited flexion secondary to pain over the patella. Full extension. Ligaments intact with varus valgus stress testing as well as with anterior-posterior drawer testing. Primarily concern at this time for potential fracture of the patella given the persistent pain nares location. Will obtain x-rays. FINDINGS: Bones/joints: Normal. Soft tissues: Soft tissue swelling most prominent at the medial aspect of the patella. IMPRESSION: Soft tissue swelling most prominent at the medial aspect of the patella. These findings with the patient. As he is having difficulty with ambulation secondary to pain, will place him in a hinged knee brace. Encourage rest, ice, elevation. Tylenol and ibuprofen as needed for discomfort. I did advise follow-up with primary care next week for reevaluation. We did discuss that my exam is somewhat limited because of his inability to flex and that he should have this reevaluated. Return precautions were discussed. All his questions and concerns were addressed and is in agreement this plan. HPI General Date/Time Provider Initiated Documentation: 03/05/20 22:41 . History of Present Illness 29 year old M presents to the emergency department with the chief complaint of left anterior knee pain, described as moderate, Quality is described as aching, and is localized to the left and lower extremity. Patient reports no radiation. Patient started experiencing this week(s) (1) and it has been constant. Immobilization improves symptom(s), Movement worsens symptoms . Patient notes no other symptoms.. Patient did receive the following treatments prior to arrival, none Related Data Home Medications Medication Instructions Recorded Confirmed omeprazole 40 mg PO BID #60 cap 05/13/19 08/17/19 buspirone 30 mg tablet 30 mg PO BID #60 tab 11/29/19 Previous Rx's Medication Instructions Recorded omeprazole 40 mg PO BID #60 cap 05/13/19 buspirone 30 mg tablet 30 mg PO BID #60 tab 11/29/19 Allergies Allergy/AdvReac Type Severity Reaction Status Date / Time morphine Allergy Intermediate Verified 08/17/19 09:23 General MAYRA: 3 Review of Systems Constitutional Constitutional: Reports as per HPI, Denies chills, Denies fever(s), Denies headache(s) and Denies weakness ENT Ears, Nose, Mouth, and Throat: Denies headache(s) Cardiovascular Cardiovascular: Reports as per HPI Respiratory Respiratory: Reports as per HPI and Denies cough Musculoskeletal Musculoskeletal: Reports as per HPI and Denies tingling Integumentary/Breasts Skin/Breast: Reports as per HPI, Denies rash and Denies wounds Neurologic Neurologic: Reports as per HPI, Denies headache(s), Denies tingling, Denies paresthesias and Denies weakness FOR[facility]LY [facility], [facility] Medical History (Updated 03/06/20 @ 00:08 by ABRAHAM Benedict) Depression Migraine without aura and without status migrainosus, not intractable (01/05/17) 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 Surgical History H/O spinal fusion Family History FAMILY HISTORY Essential hypertension Personal history of malignant neoplasm Depression Stroke Social History Smoking/Tobacco Use Status: Current every day Tobacco Type: cigarettes Alcohol Intake: current Alcohol Intake frequency: holidays/special occasions only Alcohol type: beer Drug use: Occasionally Substance use type: marijuana Details: a few times a month: Do you feel safe at home: Yes Do you feel safe in your relationship?: Yes Exam Const General: cooperative, healthy appearing, comfortable, no acute distress, well developed and well groomed Nutritional Appearance: average body habitus and well nourished Orientation: alert and awake Resp Effort & Inspection: normal respiratory effort, able to speak in complete sentences and no respiratory distress Cardio Rate: regular rate Rhythm: regular rhythm Skin General skin exam: no rashes or lesions noted Lesions: no lesions Rashes: no rashes Trauma: no lacerations or abrasions Neuro General: patient alert and patient awake Cognition: normal cognition Speech: speech normal Gait: antalgic Motor: muscle tone normal throughout Sensory Exam: no sensory deficits noted Extrem Left lower extremity: normal to inspection, normal capillary refill, no joint enlargement, hip/thigh Details: normal to inspection, knee (able to straight leg raise) Details: normal to inspection, tenderness Location: of the patella Details: medially, of the medial joint line, of the lateral joint line and of the infrapatellar area; not of the tibial tuberosity and not of the proximal fibula, knee ligament exam normal Details: anterior drawer test normal, posterior drawer test normal, valgus stress test normal and varus stress test normal; pain with axial loading, Meg's Test (unable to perform at this time) and ecchymosis (yellowed ecchymosis over patella); no swelling, no lacerations, no crepitus, no penetrating wound, no deformity and no unusual warmth and lower leg Details: normal to inspection; no erythema, no tenderness, no localized swelling, no palpable cords, no ecchymosis, no crepitus and no deformity Psych Appearance: grossly normal and well kempt Mental Status: mental status grossly normal Speech and Movement: speech and movement normal
--- NOTE | 2020-03-05 22:45 | DI.RAD_ITS ---
EXAM: XR KNEE LT 4V AP,LAT,MATTEO,PAT CLINICAL HISTORY: struck patella. TECHNIQUE: 2D digital imaging was performed. COMPARISON: No exams were available for comparison FINDINGS: BONES: No acute fracture is present. No bony destructive lesion is seen. JOINTS: The knee is normally aligned. No joint effusion is seen. SOFT TISSUE: Prepatellar soft tissue swelling IMPRESSION: Prepatellar soft tissue swelling DATA REPOSITORY: RADIATION DOSE DELIVERED:
[2020-03-05 22:48] VITALS: BP 154/94; PULSE 97; RESP 18; TEMP 36.6; O2SAT 100
--- NOTE | 2020-03-05 23:47 | DI.VRAD_ITS ---
PROCEDURE INFORMATION: Exam: XR Left Knee Exam date and time: 03/05/2020 11:08 PM Age: 29 years old Clinical indication: Other: Struck patella TECHNIQUE: Imaging protocol: XR Left knee. Views: 4 or more views. COMPARISON: No relevant prior studies available. FINDINGS: Bones/joints: Normal. Soft tissues: Soft tissue swelling most prominent at the medial aspect of the patella. IMPRESSION: Soft tissue swelling most prominent at the medial aspect of the patella. Dictated and Authenticated by: Dwight Rodríguez MD. Ordering:ALETHA Figueroa MD
== END 2020-03-06 00:20 | disposition home or self-care (01) ==
PROVIDERS: Emergency Provider Physician Assistant; PCP Family Medicine
DX: S80.01XA Contusion of right knee, initial encounter (principal); W22.02XA Walked into lamppost, initial encounter
CPT/HCPCS: 29505; 99283; 73564; 99284

== ENCOUNTER 2020-08-15 09:13 | Outpatient (CLI) | payer MEDICAID, SELFPAY ==
[2020-08-16 15:16] LABS: COVID-19 RT-PCR UVMMC Result Negative (Negative)
== END 2020-08-15 09:14 | disposition home or self-care (01) ==
LOC: LBO 09:14
PROVIDERS: PCP Family Medicine; Visit Provider Family Medicine
DX: Z20.822 Contact with and (suspected) exposure to COVID-19 (principal)
CPT/HCPCS: U0003

== ENCOUNTER 2020-08-28 15:26 | Outpatient (REF) | payer MEDICAID, SELFPAY ==
[2020-08-30 12:33] LABS: COVID-19 RT-PCR UVMMC Result Negative (Negative)
== END 2020-08-28 15:27 | disposition home or self-care (01) ==
LOC: LBN 15:26
PROVIDERS: PCP Family Medicine; Visit Provider Family Medicine
DX: Z20.822 Contact with and (suspected) exposure to COVID-19 (principal); R09.81 Nasal congestion
CPT/HCPCS: U0003

== ENCOUNTER 2020-10-02 00:15 | Emergency (ER) | payer OTHER, SELFPAY ==
--- NOTE | 2020-10-02 00:15 | DI.RAD_ITS ---
EXAM: XR FOOT RT COMPLETE CLINICAL HISTORY: pain s/p fall. TECHNIQUE: 2D digital imaging was performed. COMPARISON: No exams were available for comparison FINDINGS: Lisfranc joint appears unremarkable. No fracture or diastasis at this level. On the posterior aspect of the ankle there is a small osteophytic density measuring 3 x 1 millimeters which is possibly an avulsion fracture fragment. Does not have typical appearance of an os trigonum . Correlation with site of tenderness is recommended IMPRESSION: DATA REPOSITORY: RADIATION DOSE DELIVERED:
--- NOTE | 2020-10-02 00:15 | DI.RAD_ITS ---
EXAM: XR KNEE RT 3V AP,LAT,MATTEO CLINICAL HISTORY: pain s/p fall. TECHNIQUE: 2D digital imaging was performed. COMPARISON: CR,XR XR KNEE LT 4V AP,LAT,MATTEO,PAT from 03/05/2020 FINDINGS: There is no evidence of fracture nor joint effusion. No degenerative changes. Bone density normal. No osseous lesions IMPRESSION: No significant radiographic findings. DATA REPOSITORY: RADIATION DOSE DELIVERED:
--- NOTE | 2020-10-02 00:15 | DI.RAD_ITS ---
EXAM: XR ANKLE RT COMPLETE CLINICAL HISTORY: pain s/p fall. TECHNIQUE: 2D digital imaging was performed. COMPARISON: CR RIGHT ANKLE COMPLETE from 10/21/2014 FINDINGS: There is a small 3 x 1 millimeter ossified density seen posteriorly on the lateral view, not evident on the 2015 study. Possibly arising from the posterior tibia. Medial malleolus and lateral malleolu s/distal fibula are intact as is the talar dome and there is no widening of the mortise. No incident al osseous tarsal coalition evident. No radiopaque foreign body. IMPRESSION: Posterior small fracture fragment which may be from the posterior malleolus. DATA REPOSITORY: RADIATION DOSE DELIVERED:
[2020-10-02 00:21] VITALS: BP 166/92; PULSE 68; RESP 18; TEMP 36.6; O2SAT 99
--- NOTE | 2020-10-02 00:27 | ED.GENADUL_ITS ---
Discharge Plan Disposition Patient Disposition: HOME Condition: Stable Discharge Details Clinical Impression: Contusion of foot, right, Contusion of knee, right, Ankle fracture, right Primary Care Provider: Rocio Begum ED Provider: Elmo Taylor Home Meds and New Rx's Prescriptions: Continued buspirone 30 mg tablet 30 mg PO BID Qty: 60 RF: 2 Discharge Instructions Additional Instructions: the xrays showed a small piece of broken bone in the back of the ankle area call orthopedics for an appointment if you have worsening pain, or new pain such as chest pain or abdomen pain return to the emergency department Stand Alone Forms: Work Release Referrals: Wyatt Jones MD [ [facility] STAFF PHYSICIAN] - Medical Decision Making 30 yo male comes in with right ankle/foot pain since 9am yesterday morning after he slipped and fell approximately 4 feet from a ladder and landed on his right foot. Denies hitting head or loss of consciousness. Denies head pain, neck pain, chest pain, abdomen pain, has chronic lower back pain that is unchanged. Only has pain right now in the right ankle/proximal foot and anterior right knee. He has full rom of the ankle and toes as well as knee though with pain. normal sensation and pulses and no palpable or visible deformity. He is able to bear weight though with pain. Normal sensation and pulses. Tenderness to palpation of the plantar calcaneus as well as mid foot. Has anterior knee tenderness as well. No hip pain with full range of motion. No midline back tenderness. Will obtain xrays of the right ankle/foot as well as knee and reassess. xrays unremarkable on my read and stable exam. Still has full range so doubt any tendon injuries including achilles tendon rupture. vrad reports question small bony fragment along posterior joint margin of ankle, which is where he is having the most pain. Discussed with patient and will have him be nonweight bearing and follow up with ortho for evaluation Differential Diagnosis Differential Diagnosis: contusion, sprain, fracture Imaging Data Radiologic Study: Attestation: I personally reviewed and interpreted this imaging study as follows: Imaging: X-Ray Radiologist's impression: ankle xray: IMPRESSION: 1. Small bony fragment seen along the posterior joint margin on the lateral view. Cannot exclude a minor cortical avulsion from the posterior tibia. 2. Minor soft tissue swelling. Radiologic Study #2: Attestation: I personally reviewed and interpreted this imaging study as follows: Imaging: X-Ray Radiologist's impression: foot xray IMPRESSION: Small cortical type fragment along the posterior ankle joint margin on the lateral view. This may represent a minor avulsion fracture. Exact donor site is not visible. This might be arising from the posterior tibia Radiologic Study #3: Attestation: I personally reviewed and interpreted this imaging study as follows: Imaging: X-Ray My impression: no acute findings knee xray HPI General Mode of arrival: ambulatory . Date/Time Provider Initiated Documentation: 10/02/20 00:15 . Limitations to Documentation: no limitations . Information obtained by: patient . History of Present Illness 30 year old M presents to the emergency department with the chief complaint of right ankle pain, described as moderate, Quality is described as aching, and is localized to the right and lower extremity. Patient reports no radiation. Patient started experiencing this hour(s) (13) and it has been constant. Rest improves symptom(s), Movement worsens symptoms . Patient did receive the following treatments prior to arrival, NSAID Related Data Home Medications Medication Instructions Recorded Confirmed buspirone 30 mg tablet 30 mg PO BID #60 tab 08/28/20 10/02/20 Previous Rx's Medication Instructions Recorded buspirone 30 mg tablet 30 mg PO BID #60 tab 08/28/20 Allergies Allergy/AdvReac Type Severity Reaction Status Date / Time morphine Allergy Intermediate Verified 10/02/20 00:24 General Stated Complaint: Orthopedic MAYRA: 4 Review of Systems All systems reviewed & are unremarkable except as noted in HPI and below Constitutional Constitutional: Denies chills, Denies fever(s) and Denies weakness Cardiovascular Cardiovascular: Denies chest pain and Denies dyspnea Respiratory Respiratory: Denies cough and Denies dyspnea Gastrointestinal Gastrointestinal: Denies abdominal pain, Denies nausea and Denies vomiting Neurologic Neurologic: Denies weakness [facility] Medical History (Updated 10/02/20 @ 01:38 by Elmo Taylor MD) Depression Migraine without aura and without status migrainosus, not intractable (01/05/17) 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 Surgical History H/O spinal fusion Family History FAMILY HISTORY Essential hypertension Personal history of malignant neoplasm Depression Stroke Social History Smoking/Tobacco Use Status: Current every day Tobacco Type: cigarettes Smoking risk assessment performed?: Yes Alcohol Intake: current Alcohol Intake frequency: holidays/special occasions only Alcohol type: beer Drug use: Occasionally Substance use type: marijuana Details: a few times a month: Do you feel safe at home: Yes Do you feel safe in your relationship?: Yes Exam Const General: no acute distress Orientation: alert HENMT Head: normal to inspection Ears: external ears normal General nose exam: external nose normal Mouth: moist mucous membranes Eyes General: appearance normal, both eyes and all related structures Neck Neck: normal visual inspection Resp Effort & Inspection: normal respiratory effort and able to speak in complete sentences Cardio Rate: regular rate Skin General skin exam: no rashes or lesions noted Neuro General: patient alert and patient oriented x3 Extrem General: full ROM and capillary refill normal Psych Mental Status: mental status grossly normal Course Vital Signs Vital signs: Vital Signs Temperature 36.6 C 10/02/20 00:21 Pulse 68 10/02/20 00:21 Respiratory Rate 18 10/02/20 00:21 Blood Pressure 166/92 H 10/02/20 00:21 Pulse Oximetry 99 10/02/20 00:21 Temperature 36.6 C 10/02/20 00:21 Temperature Source Temporal Artery Scan 10/02/20 00:21 Pulse 68 10/02/20 00:21 Respiratory Rate 18 10/02/20 00:21 Blood Pressure 166/92 H 10/02/20 00:21 Blood Pressure Position Sitting 10/02/20 00:21 Pulse Oximetry 99 10/02/20 00:21 Oxygen Delivery Method Room Air 10/02/20 00:21 Oxygen Flow Rate 0 10/02/20 00:21 Pain Level 9 10/02/20 00:21
--- NOTE | 2020-10-02 01:26 | DI.VRAD_ITS ---
PROCEDURE INFORMATION: Exam: XR Right Ankle Exam date and time: 10/02/2020 1:00 AM Age: 30 years old Clinical indication: Injury or trauma; Work related; Blunt trauma; Right; Injury date: 10/01/20; Injury details: Fall from ladder, ankle/heel pain TECHNIQUE: Imaging protocol: XR Right ankle. Views: 3 or more views. COMPARISON: CR RIGHT ANKLE COMPLETE 10/21/2014 12:28 PM FINDINGS: Bones/joints: Small fracture fragment seen posteriorly on the lateral view. This appears to represent a minor cortical avulsion fragment. This measures approximately 3 x 1.5 cm. This is not evident on a prior study from 2014. This might be arising from the posterior tibia. Medial malleolus is unremarkable. Distal fibula is intact. Talar dome is unremarkable. Soft tissues: Minor soft tissue swelling. IMPRESSION: 1. Small bony fragment seen along the posterior joint margin on the lateral view. Cannot exclude a minor cortical avulsion from the posterior tibia. 2. Minor soft tissue swelling. Dictated and Authenticated by: Modesto Padilla MD. Ordering:EDWINA Borrego MD
--- NOTE | 2020-10-02 01:31 | DI.VRAD_ITS ---
PROCEDURE INFORMATION: Exam: XR Right Foot Exam date and time: 10/02/2020 12:28 AM Age: 30 years old Clinical indication: Injury or trauma; Work related; Blunt trauma; Foot; Right; Injury date: 10/01/20; Injury details: Fall from ladder, pain TECHNIQUE: Imaging protocol: XR Right foot. Views: 3 or more views. COMPARISON: CR RIGHT ANKLE COMPLETE 10/21/2014 12:28 PM FINDINGS: Bones/joints: Small cortical fragment is suggested posterior to the joint margin on the lateral view. This may represent a minor cortical avulsion from the posterior tibia. Calcaneus is unremarkable. Talus is normal. Tarsal bones, metatarsals, and phalanges are intact. Soft tissues: Normal. IMPRESSION: Small cortical type fragment along the posterior ankle joint margin on the lateral view. This may represent a minor avulsion fracture. Exact donor site is not visible. This might be arising from the posterior tibia. Dictated and Authenticated by: Modesto Padilla MD. Ordering:EDWINA Borrego MD
--- NOTE | 2020-10-02 01:32 | DI.VRAD_ITS ---
PROCEDURE INFORMATION: Exam: XR Right Knee Exam date and time: 10/02/2020 12:28 AM Age: 30 years old Clinical indication: Injury or trauma; Work related; Blunt trauma; Knee; Right; Injury date: 10/01/20; Injury details: Fall from ladder, pain TECHNIQUE: Imaging protocol: XR Right knee. Views: 3 views. COMPARISON: No relevant prior studies available. FINDINGS: Bones/joints: Normal. Soft tissues: Normal. IMPRESSION: No acute findings. Dictated and Authenticated by: Modesto Padilla MD. Ordering:EDWINA Borrego MD
[2020-10-02 01:44] VITALS: BP 148/72; PULSE 60; RESP 16; TEMP 36.6; O2SAT 99
--- NOTE | 2020-10-02 01:46 | NUR.NOTE ---
Pt fitted for short ortho boot and crutches. Pt able to demonstrate application of boot and usage of crutches.
== END 2020-10-02 01:40 | disposition home or self-care (01) ==
LOC: ER 01:49
PROVIDERS: Emergency Provider Emergency Medicine; PCP Family Medicine
DX: S82.891A Other fracture of right lower leg, initial encounter for closed fracture (principal); S80.01XA Contusion of right knee, initial encounter; W11.XXXA Fall on and from ladder, initial encounter
CPT/HCPCS: 73562; 99284; 73610; 73630; 99283

== ENCOUNTER 2020-11-05 14:43 | Outpatient (CLI) | payer OTHER, SELFPAY ==
--- NOTE | 2020-11-05 14:30 | DI.US_ITS ---
Exam(s) US LOWER EXTREMITY VENOUS RT EXAM: US LOWER EXTREMITY VENOUS RT CLINICAL HISTORY: right calf pain,AVULSION FX, S82.891A, ? DVT. TECHNIQUE: Ultrasound performed using standard protocol. COMPARISON: No exams were available for comparison FINDINGS: Duplex venous ultrasound was performed according to the usual protocol. The deep veins are freely com pressible throughout and there is normal flow augmentation with manual calf compression. 2D and Doppl er evaluation are unremarkable. IMPRESSION: No evidence of deep venous thrombosis of the right lower extremity. DATA REPOSITORY:
--- NOTE | 2020-11-05 15:15 | DI.RAD_ITS ---
Exam(s) XR TIB/FIB RT EXAM: XR TIB/FIB RT CLINICAL HISTORY: pain in right lower extremity s82.891a fx rt lower leg, avulsion fx rt ankl TECHNIQUE: COMPARISON: CR,XR XR ANKLE RT COMPLETE from 10/02/2020 CR,XR XR FOOT RT COMPLETE from 10/02/2020 FINDINGS: Two views were obtained. A small ossific or calcific amrik is noted adjacent to the posterior aspect of the distal tibia. No other bony or soft tissue abnormality is seen. No change in appearance com parison with examinations from October 02. IMPRESSION: RADIATION DOSE DELIVERED: Total DLP
== END 2020-11-05 15:03 ==
PROVIDERS: PCP Family Medicine; Visit Provider Student in an Organized Health Care Education/Training Program
DX: M79.661 Pain in right lower leg (principal); S82.891D Other fracture of right lower leg, subsequent encounter for closed fracture with routine healing
CPT/HCPCS: 73590; 93971

== ENCOUNTER 2020-12-05 14:13 | Outpatient (CLI) | payer MEDICAID, SELFPAY ==
--- NOTE | 2020-12-05 11:30 | DI.RAD_ITS ---
Exam(s) XR ANKLE RT COMPLETE EXAM: XR ANKLE RT COMPLETE CLINICAL HISTORY: f/u fracture. TECHNIQUE: 2D digital imaging was performed. COMPARISON: CR,XR XR ANKLE RT COMPLETE from 10/02/2020 FINDINGS: The previously described small calcific density seen posterior to the ankle joint is unchanged.. Is unchanged in size and configuration and orientation. Although this may be an avulsion fragment off t he posterior malleolus, another possibility that this represents is somewhat atypical appearing os tr igonum. Remainder of the ankle osseous structures appear unremarkable. Talar dome is unremarkable. No widening of the mortise. No soft tissue swelling. No evidence of incidental osseous tarsal coal ition. IMPRESSION: DATA REPOSITORY: RADIATION DOSE DELIVERED:
== END 2020-12-05 14:14 | disposition home or self-care (01) ==
LOC: DIORS 14:13
PROVIDERS: PCP Family Medicine; Referring Provider Family Medicine; Visit Provider Student in an Organized Health Care Education/Training Program
DX: S82.891D Other fracture of right lower leg, subsequent encounter for closed fracture with routine healing (principal); X58.XXXD Exposure to other specified factors, subsequent encounter
CPT/HCPCS: 73610

== ENCOUNTER 2021-06-29 21:58 | Emergency (ER) | payer MEDICAID, SELFPAY ==
[2021-06-29 22:02] VITALS: BP 141/81; PULSE 80; RESP 16; TEMP 36.7; O2SAT 100
--- NOTE | 2021-06-29 22:12 | DI.RAD_ITS ---
Exam(s) XR SHOULDER LT COMPLETE 2+V EXAM: XR SHOULDER LT COMPLETE 2+V CLINICAL HISTORY: left shoulder pain 2 weeks. TECHNIQUE: 2D digital imaging was performed. COMPARISON: No exams were available for comparison FINDINGS: No evidence of fracture or dislocation or abnormal soft tissue calcifications. No degenerative adorno es. Bone density normal. No osseous lesions. IMPRESSION: No significant radiographic findings in the left shoulder. DATA REPOSITORY: RADIATION DOSE DELIVERED:
--- NOTE | 2021-06-29 22:12 | ED.GENADUL_ITS ---
Discharge Plan Disposition Patient Disposition: HOME Condition: Good Discharge Details Clinical Impression: Acute pain of left shoulder Primary Care Provider: Pablo Bautista ED Provider: Fan Jose Home Meds and New Rx's Prescriptions: New prednisone 50 MG tablet 50 mg PO DAILY Qty: 5 RF: 0 Continued buspirone 30 mg tablet 30 mg PO BID Qty: 60 RF: 2 Discharge Instructions Instructions: Shoulder Pain (ED) Additional Instructions: Time at this time your x-ray shows no evidence of fracture. I suspect you have mild bursitis which is inflammation around some of the tissues in your shoulder as well as irritation of some of the tendon/ligaments in your shoulder. Please take 800 mg of ibuprofen every 6 hours and 1000 mg of Tylenol every 6 hours. These are the maximum doses. Please ice your shoulder as often as possible throughout the day. Please take the steroids as directed. A prescription has been sent to your pharmacy. If you have continued pain that does not improve with therapy you may require further assessment by an technical applications specialist. Please follow-up with your primary care provider for reassessment. If you notice any worsening of your symptoms, or any new symptoms such as vomiting, diarrhea, fever, chills, shortness of breath, chest pain, numbness, weakness, or fainting , please return immediately to the emergency department for reevaluation. Please follow up with your primary care provider as soon as possible for reassessment and reevaluation. As always, it was a pleasure participating in your medical care today. Stand Alone Forms: Work Release Referrals: Pablo Bautista MD [Primary Care Provider] - Medical Decision Making This is a 31-year-old male with a past medical history of mild depression, previous orthopedic injuries who presents today for evaluation of left shoulder pain. Patient is right hand dominant. 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 Over the last 2 weeks he has noted achiness and pain in his left shoulder. Occasionally there will be an initial sharp pain that first occurs during the day, and it is usually achiness throughout the day. He notices that the achiness is notably worse at night. He does take 600 mg of ibuprofen which does not seem to help. He denies any history of injuries or trauma. Patient denies any history of IV drug use. Pain is located in the shoulder, worse with movement. No significant radiation. He admits to some mild tingling around the shoulder but no other significant locations. He denies any decrease in strength but does admit this weakness secondary to pain with movement. Physical exam demonstrates notable restricted mobility of the left shoulder, pain over the biceps tendon but as well as the entire shoulder. No redness or effusion to suggest infection except joint. No warmth. Pain with virtually all movements of the shoulder, but particularly abduction, external rotation, and anterior/posterior movement. I suspect that the patient has a component of bursitis, as well as mild tendinopathy secondary to his repetitive motion and use. Will recommend maximum dose Tylenol and Motrin, ice, and a short steroid burst. We will get screening x-ray to rule out any bony fragments or other significant abnormality. 10:58 PM X-ray results negative for acute process. Suspect bursitis and mild tendinitis. Recommend Tylenol Motrin will give steroid burst. Recommend ice. Did give recommendations that the patient follows up with his PCP or technical applications specialist if his symptoms do not improve over the next 1-2 weeks with therapy. I have extensively reviewed the treatment plan and discharge instructions with the patient. I have addressed all patient concerns at this time. The patient was made aware of what symptoms to monitor for that would warrant a return to the emergency department. Discussed the plan with the patient, they demonstrate verbal understanding and agreement with our assessment and plan at this time. The documentation in this chart was dictated using [employer] dictation software. Please excuse any dictation errors. FINDINGS: Bones/joints: No suspicious osseous lytic or blastic lesion. No acute fracture or dislocation. Acromioclavicular and coracoclavicular intervals within normal limits. Soft tissues: No focal abnormality. IMPRESSION: No acute findings. Thank you for allowing us to participate in the care of your patient. Dictated and Authenticated by: Masoud Boone MD 06/29/2021 10:54 PM Eastern Time ([place] & [place]) HPI General Date/Time Provider Initiated Documentation: 06/29/21 21:59 . HPI Narrative: This is a 31-year-old male with a past medical history of mild depression, previous orthopedic injuries who presents today for evaluation of left shoulder pain. Patient is right hand dominant. 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 Over the last 2 weeks he has noted achiness and pain in his left shoulder. Occasionally there will be an initial sharp pain that first occurs during the day, and it is usually achiness throughout the day. He notices that the achiness is notably worse at night. He does take 600 mg of ibuprofen which does not seem to help. He denies any history of injuries or trauma. Patient denies any history of IV drug use. Pain is located in the shoulder, worse with movement. No significant radiation. He admits to some mild tingling around the shoulder but no other significant locations. He denies any decrease in strength but does admit this weakness secondary to pain with movement. Related Data Home Medications Medication Instructions Recorded Confirmed buspirone 30 mg tablet 30 mg PO BID #60 tab 08/28/20 06/29/21 prednisone 50 mg PO DAILY #5 tab 06/29/21 Previous Rx's Medication Instructions Recorded buspirone 30 mg tablet 30 mg PO BID #60 tab 08/28/20 prednisone 50 mg PO DAILY #5 tab 06/29/21 Allergies Allergy/AdvReac Type Severity Reaction Status Date / Time morphine Allergy Intermediate Verified 01/13/21 18:49 General Stated Complaint: Orthopedic MAYRA: 4 Review of Systems All systems reviewed & are unremarkable except as noted in HPI and below PFSH All Active Problems (Updated 06/29/21 @ 22:28 by Fan Jose DO) Acute pain of left shoulder (Acute) Avulsion fracture of right ankle (Acute 10/02/20) Contusion of foot, right (Acute) Contusion of knee, right (Acute) Ankle fracture, right (Acute) Obesity (Chronic) Elevated blood pressure reading without diagnosis of hypertension (Acute) Viral URI (Acute) 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 Jones: PT + facet injections Depression (Acute 12/01/13) intol. to Zoloft and Effexor Tobacco chew use (Acute 01/05/17) Migraine without aura and without status migrainosus, not intractable (Chronic 01/05/17) Medical History (Updated 06/29/21 @ 22:28 by Fan Jose DO) Depression Surgical History H/O spinal fusion Family History FAMILY HISTORY Essential hypertension Personal history of malignant neoplasm Depression Stroke Social History Smoking/Tobacco Use Status: Current every day Tobacco Type: cigarettes Smoking risk assessment performed?: Yes Alcohol Intake: current Alcohol Intake frequency: holidays/special occasions only Alcohol type: beer Drug use: Occasionally Substance use type: marijuana Details: a few times a month: Current gender identity: male Do you feel safe at home: Yes Do you feel safe in your relationship?: Yes Exam Narrative Exam Narrative: 1.Const: Well-nourished, Well-developed, appearing stated age 2.Eyes: PERRL, no conjunctival injection, and symmetrical lids. 3.ENT: Atraumatic external nose and ears. Moist MM. Neck: Symmetric, trachea midline, No thyromegaly. 4.CVS: +S1/S2, No murmurs or gallops. Peripheral pulses 2+ and equal in all extremities. Brisk capillary refill in all extremities. 5.RESP: Unlabored respiratory effort. Clear to auscultation bilaterally. No wheezes rales or rhonchi 6.GI: Soft, Nontender/Nondistended, No hepatosplenomegaly. No guarding or rebound. 7.MSK: Normocephalic/Atraumatic, Extremities w/o deformity left shoulder demonstrates. Movement of the right shoulder demonstrates no pain tenderness or restriction of movement. Movement of the left shoulder however demonstrates a moderately restricted shoulder for all areas of movement. There is pain most with anterior and posterior movement of the shoulder as well as notable pain with external rotation and moderate pain with internal rotation. Moderate pain with abduction but no significant pain with adduction. Seem to be point tenderness over the biceps tendon insertion, but generalized tenderness around the humeral head. Empty can test also elicited mild pain. 8.Skin: Warm, Dry. No rashes or lesions. No redness or swelling to suggest infection or septic joint. 9.Neuro: lacquer shader II-XII grossly intact. Sensation grossly intact, no focal neurologic deficits. 10.Psych: (AAO) x3. Appropriate mood and affect Course Vital Signs Vital signs: Vital Signs Temperature 36.7 C 06/29/21 22:02 Pulse 80 06/29/21 22:02 Respiratory Rate 16 06/29/21 22:02 Pulse Oximetry 100 06/29/21 22:02 Temperature 36.7 C 06/29/21 22:02 Temperature Source Temporal Artery Scan 06/29/21 22:02 Pulse 80 06/29/21 22:02 Respiratory Rate 16 06/29/21 22:02 Respiratory Effort 06/29/21 22:09 Pulse Oximetry 100 06/29/21 22:02 Oxygen Delivery Method Room Air 06/29/21 22:02 Oxygen Flow Rate 0 06/29/21 22:02 Pain Level 7 06/29/21 22:02 PAWSS Have you Been Recently Intoxicated or Drunk Within the Last 30 days?: No Have you Ever Experienced Previous Episodes of Alcohol Withdrawal?: No Have you ever Experienced Withdrawal Seizures?: No Have you ever Experienced Delirium Tremens(DT)s?: No Have you ever undergone Alcohol Rehabilitation Treatment (i.e, inpt ot outpatient treatment programs)?: No Have you ever Experienced Blackouts?: No Have you ever Combined Alcohol with other Downers within the last 90 days?: No Have you ever Combined Alcohol with any other Substance of Abuse during the last 90 days?: No Positive Blood Alcohol level on Presentation? [PCS.BAL]: Unable to Obtain Evidence of Increased Autonomic Activity (i.e. HR>120, tremor, sweating, agitation, nausea)?: Unable to Obtain Result: 0
[2021-06-29] MEDS: predniSONE 20 MG TAB 60 MG PO (22:30)
--- NOTE | 2021-06-29 22:55 | DI.VRAD_ITS ---
PROCEDURE INFORMATION: Exam: XR Left Shoulder Exam date and time: 06/29/2021 10:26 PM Age: 31 years old Clinical indication: Shoulder; Left; Patient HX: Pain for a few weeks, increasing TECHNIQUE: Imaging protocol: XR Left shoulder. Views: 2 or more views. COMPARISON: CR XR CHEST 2V PA LATERAL 04/18/2018 10:04 AM FINDINGS: Bones/joints: No suspicious osseous lytic or blastic lesion. No acute fracture or dislocation. Acromioclavicular and coracoclavicular intervals within normal limits. Soft tissues: No focal abnormality. IMPRESSION: No acute findings. Dictated and Authenticated by: Masoud Boone MD. Ordering:NORMA Chavira MD
== END 2021-06-29 22:58 | disposition home or self-care (01) ==
PROVIDERS: Emergency Provider Student in an Organized Health Care Education/Training Program; PCP Family Medicine
DX: M25.512 Pain in left shoulder (principal); X50.3XXA Overexertion from repetitive movements, initial encounter; Y99.0 Civilian activity done for income or pay
CPT/HCPCS: 99283; 73030; J7512

== ENCOUNTER 2022-07-22 09:46 | Outpatient (CLI) | payer MEDICAID, SELFPAY ==
--- NOTE | 2022-07-22 09:45 | RT.EKG_ITS ---
APPROVED REPORT Exam: Resting ECG Reason for Exam: chest pain Patient Location: O HR:83 bpm ECG Measurements Heart Rate 83 AXIS DC 139 P 56 QRSd 80 QRS 30 QT 382 T 49 QTc 449 Conclusion Sinus rhythm...normal P axis, V-rate 50- 99 Normal Electrocardiogram
== END 2022-07-22 09:47 | disposition home or self-care (01) ==
LOC: DI.CM 09:48
PROVIDERS: PCP Nurse Practitioner Family; Visit Provider Nurse Practitioner Family
DX: R07.9 Chest pain, unspecified (principal)
CPT/HCPCS: 93010

== ENCOUNTER 2023-01-20 03:02 | Outpatient (CLI) | payer MEDICAID, SELFPAY ==
[2023-01-20 12:28] LABS: Hemoglobin A1C 5.4 % (<5.7)
[2023-01-20 12:31] LABS: Calculated LDL 94 mg/dL (<100); Cholesterol 154 mg/dL (<200); HDL Cholesterol 40 mg/dL (40-60); Triglyceride 100 mg/dL (<150)
== END 2023-01-20 03:03 | disposition home or self-care (01) ==
LOC: LOS 03:02
PROVIDERS: PCP Nurse Practitioner Family; Visit Provider Nurse Practitioner Family
DX: Z13.220 Encounter for screening for lipoid disorders (principal); Z13.1 Encounter for screening for diabetes mellitus
CPT/HCPCS: 36415; 80061; 83036

== ENCOUNTER 2023-06-02 07:17 | Emergency (ER) | payer OTHER, SELFPAY ==
--- NOTE | 2023-06-02 07:15 | DI.RAD_ITS ---
Exam(s) XR SHOULDER RT COMPLETE 2+V EXAM: XR SHOULDER RT COMPLETE 2+V CLINICAL HISTORY: Right shoulder pain. TECHNIQUE: 2D digital imaging was performed. COMPARISON: CR,XR XR SHOULDER LT COMPLETE 2+V from 06/29/2021 FINDINGS: Five views. There is no evidence of fracture or dislocation or abnormal soft tissue calcifications. Subacromial space unremarkable. No degenerative changes evident in the glenohumeral and AC joints. Coracoid pro cess is intact. Bone density normal. No osseous lesions. IMPRESSION: No significant osseous findings in the shoulder. DATA REPOSITORY: RADIATION DOSE DELIVERED:
[2023-06-02 07:21] VITALS: BP 146/83; PULSE 84; RESP 16; TEMP 36.6; O2SAT 100
--- NOTE | 2023-06-02 07:22 | ED.GENADUL_ITS ---
Discharge Plan Disposition Patient Disposition: Home Discharge Details Clinical Impression: Acute pain of right shoulder, Superficial bruising of upper limb Primary Care Provider: Markos Sandoval ED Provider: Constantine Huggins Home Meds and New Rx's Prescriptions: Continued buspirone 30 mg tablet 30 mg PO BID Qty: 60 5RF Discharge Instructions Instructions: Shoulder Pain (ED) Additional Instructions: You are seen in the emergency department for your shoulder pain. Your x-ray did showed no sign of any acute fractures. As we discussed he will likely benefit from an MRI if your improved. Please follow-up with your primary care provider later this week. Please wear this sling until you are seen by your primary care provider. Please return to the emergency department if you lose sensation in your right hand develop any weakness in your hand or have any other concerns. For your pain please take medications as follows: 1. Take acetaminophen (Tylenol), 1,000 mg (two 500 mg tabs) every 6 hours 2. Take ibuprofen (Advil), 400 mg every 6 hours. Stand Alone Forms: Work Release HPI General Date/Time Provider Initiated Documentation: 06/02/23 07:18 . HPI Narrative: MDM This is an overall very well-appearing normothermic and not tachycardic 32-year- old male with right shoulder pain and ecchymosis to distal humerus concerning for possibility of tendon injury. No pain out of proportion to suggest necrotizing soft tissue infection. No significant trauma so my suspicion is low for dislocation however will obtain plain films. No history of malignancy so doubt pathological fracture. No chest pain without ACS. No cough to suggest pneumonia. No headache to suggest subarachnoid hemorrhage. Patient is not an IV drug user and has no significant erythema to his right shoulder so my suspicion for septic arthritis is low. Given no IV drug use my suspicion for upper extremity DVT is low. Furthermore no recent PICC lines making patient lower risk for upper extremity DVT. No recent antibiotics use to suggest biceps tendon injury. He may have tendinitis or bursitis. Adhesive capsulitis is also a possibility so plain films are negative and bedside ultrasound does not show any clear tendon disruptions will advise pendulum activities. His right hand is well-perfused and warm so my suspicion for any vascular injury is low so we will defer CT angiogram. No history of thoracic rib to suggest thoracic outlet syndrome. Patient's vitals are significant for mildly elevated blood pressure. He does not carry history of hypertension. Elevated blood pressure may be secondarily to pain. Will advise outpatient PCP follow-up. 8:15 AM Right upper extremity limited duplex with no obvious acute tendon disruptions. Patient had no acute osseous abnormalities on x-ray. Will keep him nonweightbearing right upper extremity in a sling. I asked health director of community services Devi to have the patient seen and reassessment by his primary care provider later this week. Advised ED return for worsening pain color changes in his hands or any numbness or tingling in his right hand. If his pain has completely resolved and reassessment later this week he may not require an MRI. My suspicion however is that he will have persistent pain and in the setting of his bruising is history of a pop and his decreased mobility that he will likely benefit from an MRI to assess for any significant tendon injury in his right biceps. Patient understood his return indications and was discharged with empiric trial of expectant outpatient management. Chronic conditions affecting the care of the patient: Elevated blood pressure without a diagnosis of hypertension History obtained from an outside historian: N/A External record review: [facility] EMR Medications: Acetaminophen ibuprofen Social determinants of health affecting disposition: N/A Management discussed with: N/A Treatment/interventions considered: N/A Response to therapies provided: N/A HPI This is a [id number] 32-year-old male arrived to the emergency department via private vehicle in the setting of right shoulder pain. 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 He transiently felt some numbness in his fingertips. He has not had any surgeries to his right shoulder in the past. Patient for the past several weeks has had pain and has right shoulder. He is also had some left shoulder discomfort. He reports a history in 2010 of lumbar spinal surgery. He denies IV drug use. He has had no chest pain no fevers no chills no nausea nor vomiting. He denies shortness of breath and cough. Exam General: Well-appearing in no acute distress speaking in complete sentences. Head: Normocephalic, atraumatic. Eye: Extraocular eye movements intact. No conjunctival injection. No scleral icterus. Ear, nose, mouth, throat: Grossly normal inspection. Normal voice, handling secretions normally. Neck: Trachea midline. Cardiovascular: Well-perfused distal extremities. Respiratory: Nonlabored respiration. Gastrointestinal: Nondistended abdomen. Musculoskeletal: Right hand warm and well-perfused with 2+ right radial pulse. Sensation motor function intact in the right hand across the radial, median, and ulnar nerve distributions. On inspection patient does have a small approximately 1 x 2 cm ecchymotic area on the anterior surface of his right distal biceps. He has no significant elbow tenderness. He does have slightly limited ability to flex his right humerus. He can touch his right hand to his contralateral shoulder. He has limited range of motion in his right shoulder. He is able to abduct his right arm approximately 65 degrees. He is able to flex his right arm approximately 45 degrees. He is able to extend his right arm approximately 15 degrees. He is unable to participate in any provocative testing. No obvious biceps tendon rupture. Skin: Normal for age and race, grossly normal temperature and turgor. No acute rash. Neurologic: Alert and appropriate, no apparent acute deficits. Psychiatric: Mood and manner are appropriate. Grooming and personal hygiene are appropriate. Related Data Home Medications Medication Instructions Recorded Confirmed buspirone 30 mg tablet 30 mg PO BID anxiety disorder #60 11/20/22 06/02/23 tabs Previous Rx's Medication Instructions Recorded buspirone 30 mg tablet 30 mg PO BID anxiety disorder #60 11/20/22 tabs Allergies Allergy/AdvReac Type Severity Reaction Status Date / Time morphine Allergy Intermediate Verified 06/02/23 07:23 General MAYRA: 4 PFSH All Active Problems (Updated 06/02/23 @ 08:29 by Constantine Huggins MD) Superficial bruising of upper limb (Acute) Acute pain of right shoulder (Acute) Obesity (Chronic) Elevated blood pressure reading without diagnosis of hypertension (Acute) Acute right-sided low back pain with right-sided sciatica (Acute 12/03/15) status post L5-S1 fusion in 11-24-2016: recurrence of pain post [facility]:Dr. Jones: PT + facet injections Depression (Acute 12/01/13) intol. to Zoloft and Effexor Tobacco chew use (Acute 01/05/17) Migraine without aura and without status migrainosus, not intractable (Chronic 01/05/17) Rarely Medical History (Updated 06/02/23 @ 08:29 by Constantine Huggins MD) Avulsion fracture of right ankle (10/02/20) Depression Surgical History H/O spinal fusion Family History FAMILY HISTORY Essential hypertension Personal history of malignant neoplasm Depression Stroke Social History (Updated 11/21/22 @ 09:57 by Gertrudis Lopez) Smoking/Tobacco Use Status: Current every day Tobacco Type: e-cigarettes and smokeless tobacco Tobacco: How many years used: 10 Smokeless tobacco user: chewing tobacco Quit status: quit date established Smoking risk assessment performed?: Yes Alcohol Intake: former Drug use: Occasionally Substance use type: marijuana Details: a few times a month: Caregiver/Support person: No Household members: spouse and children Housing: house Communication Needs: None Do you need help understanding health information?: Never Pets and animals: Yes Pets and animals: cat(s) and dog(s) Sexually active: Yes Do you think of yourself as: straight/heterosexual Current gender identity: male What is your relationship status?: How often do you talk on the phone with friends or family?: once per week How often do you get together with friends or relatives?: once per week How often do you attend taoism or mu-ism services?: 1-3 times per year Do you belong to any clubs or organized social groups?: no Panel score (0-1 are the most socially isolated patients): 1 What type of physical activity do you participate in: none Frequency: does not exercise Antionette/Zoroastrianism: No preference Special antionette needs: No Seatbelt use: sometimes Drive intox or ride w/intox local owner operator truck driver: No Do you feel safe at home: Yes Do you feel safe in your relationship?: Yes POCUS Exam (ED) Limited Soft Tissue Exam DATE OF EXAM: 06/02/23 TIME OF EXAM: 08:12 PROVIDER THAT PERFORMED THE STUDY: Constantine Huggins IS THIS A REPEAT EXAM DURING THIS ENCOUNTER: No LOCATION OF EXAM: Upper extremity/right REASON FOR EXAM: Pain Exam Complete DIFFERENTIAL DIAGNOSES: No significant abnormalities on limited right upper extremity ultrasound of the biceps INCIDENTAL FINDINGS: N/A
--- NOTE | 2023-06-02 07:30 | DI.RAD_ITS ---
Exam(s) XR HUMERUS RT EXAM: XR HUMERUS RT CLINICAL HISTORY: Right humerus pain. TECHNIQUE: 2D digital imaging was performed. COMPARISON: No exams were available for comparison FINDINGS: 3 views No evidence of fracture nor dislocation. Also no fractures in the lower half of the humerus. Epicon dyles unremarkable. IMPRESSION: No significant osseous findings in the right humerus. DATA REPOSITORY: RADIATION DOSE DELIVERED:
[2023-06-02] MEDS: Acetaminophen 500 MG TAB 1000 MG PO (08:01)
[2023-06-02] MEDS: Ibuprofen 600 MG TAB PO (08:01)
--- NOTE | 2023-06-02 08:52 | NUR.NOTE ---
Referral faxed to PCP for right shoulder pain, needs MRI, to be seen by the end of the week. Nursing Note:
--- NOTE | 2023-06-02 09:19 | DI.VRAD_ITS ---
PROCEDURE INFORMATION: Exam: XR Right Shoulder Exam date and time: 06/02/2023 7:47 AM Age: 32 years old Clinical indication: Other: Pain.No history of trauma or recent surgery is provided. TECHNIQUE: Imaging protocol: Radiologic exam of the right shoulder. 5image(s) are provided. Views: 2 or more views. COMPARISON: 1. CR XR CHEST 2V PA LATERAL 04/18/2018 10:04 AM 2. CR XR HUMERUS RT 06/02/2023 7:51 AM FINDINGS: Bones/joints: Osseous alignment is maintained.No interval displaced fracture or dislocation is appreciated. Glenohumeral alignment appears maintained. There is some mild degenerative appearance about the acromioclavicular junction along with some slight subacromial narrowing. There are some mild chronic appearing degenerative changes of the superolateral aspect of the humeral head. There is some minimal subchondral cystic related change and could also be seen with some osteo chondrosis or repetitive micro trauma about the superior aspect of the humeral head similar. Lungs: No lobar consolidation is appreciated. Pleural space: No pneumothorax is appreciated. Soft tissues: No radiopaque foreign body or subcutaneous emphysema is appreciated. Other findings: No other significant interval changes are appreciated. IMPRESSION: Osseous alignment is maintained with some chronic degenerative appearance of the shoulder overall.No interval fracture or dislocation is appreciated. If there is persistent pain or limited range of motion then consider MRI arthrogram of the shoulder. Dictated and Authenticated by: Baljeet Singh MD. Ordering:CLAUDIO Fitch MD
--- NOTE | 2023-06-02 09:24 | DI.VRAD_ITS ---
PROCEDURE INFORMATION: Exam: XR Right Humerus Exam date and time: 06/02/2023 7:51 AM Age: 32 years old Clinical indication: Other: Pain TECHNIQUE: Imaging protocol: Radiologic exam of the right humerus. 6image(s) are provided. Views: 2 or more views. COMPARISON: 1. CR XR SHOULDER RT COMPLETE 2+V 06/02/2023 7:47 AM 2. CR XR CHEST 2V PA LATERAL 04/18/2018 10:04 AM FINDINGS: Bones/joints: Osseous alignment is maintained.No displaced fracture or dislocation is appreciated. There are chronic appearing mild degenerative changes of the shoulder. Elbow alignment appears maintained. There is some mild chronic appearing degenerative changes of the elbow with some subtle spurring about the proximal ulna. This can also be seen with previous injury related sequela. The margins are well corticated. There are some subchondral cystic related changes of the humeral head albeit similar overall. Soft tissues: No radiopaque foreign body or subcutaneous emphysema is appreciated. Other findings: No other significant interval changes are appreciated. IMPRESSION: Osseous alignment is maintained. No interval fracture or dislocation is appreciated. Dictated and Authenticated by: Baljeet Singh MD. Ordering:CLAUDIO Fitch MD
== END 2023-06-02 08:53 | disposition home or self-care (01) ==
PROVIDERS: Emergency Provider Emergency Medicine; PCP Nurse Practitioner Family
DX: M25.511 Pain in right shoulder (principal); R20.0 Anesthesia of skin; F17.290 Nicotine dependence, other tobacco product, uncomplicated; F17.220 Nicotine dependence, chewing tobacco, uncomplicated
CPT/HCPCS: 76882; 99284; 73030; 73060; 99283

== ENCOUNTER → 2023-06-23 01:00 | Outpatient (CLI) | payer OTHER, SELFPAY ==
--- NOTE | 2023-06-23 08:15 | DI.MRI_ITS ---
Exam(s) MR UPPER JOINT RT WO EXAM: MR UPPER JOINT RT WO CLINICAL HISTORY: XR neg, unalbe to raise arm,shoulder pain,superficial bruise,m25.511,. TECHNIQUE: Multiplanar multisequence MRI was performed. COMPARISON: Plain films 02 June 2023 FINDINGS: BONES: There is no fracture or contusion pattern. JOINTS:The acromioclavicular joint is normal. The glenohumeral joint is normal. No joint effusion.. TENDONS: Supraspinatus: Unremarkable. Infraspinatus: Unremarkable. Subscapularis: Unremarkable. Teres Minor: Unremarkable. Biceps and Hartwick: Unremarkable. MUSCLES: Unremarkable. GLENOID LABRUM: Unremarkable on this noncontrast examination. SOFT TISSUES: Unremarkable. OTHER: Subacromial and subdeltoid bursae show no fluid. There is small amount of fluid is noted on b etween the labrum and distal supraspinatus muscle. . IMPRESSION: No evidence of rotator cuff tear. DATA REPOSITORY:
== END ==
PROVIDERS: PCP Nurse Practitioner Family; Visit Provider Nurse Practitioner Family
DX: M25.511 Pain in right shoulder (principal); S40.021A Contusion of right upper arm, initial encounter; X58.XXXA Exposure to other specified factors, initial encounter
CPT/HCPCS: 73221

== ENCOUNTER → 2023-11-09 15:18 | Outpatient (CLI) | payer MEDICAID, SELFPAY ==
--- NOTE | 2023-11-09 18:30 | DI.RAD_ITS ---
Exam(s) XR TOE LT GREAT EXAM: XR TOE LT GREAT CLINICAL HISTORY: evaluate pathology. TECHNIQUE: 2D digital imaging was performed of the left great toe. Three images were obtained. AP, oblique and lateral views were obtained. COMPARISON: No exams were available for comparison FINDINGS: BONES: No acute fracture is present. No bony destructive lesion is seen. JOINTS: No dislocation present. The joint spaces are well maintained. SOFT TISSUE: Normal. No radiopaque foreign body. IMPRESSION: No acute fracture or dislocation of the great toe. DATA REPOSITORY: RADIATION DOSE DELIVERED:
--- NOTE | 2023-11-09 19:28 | DI.VRAD_ITS ---
PROCEDURE INFORMATION: Exam: XR Left Toe(s) Exam date and time: 11/09/2023 6:39 PM Age: 33 years old Clinical indication: Injury or trauma; Other: Bar fell on foot; Blunt trauma; Toes; Left; Injury date: 11/08/23; Injury details: Evaluate pathology TECHNIQUE: Imaging protocol: Radiologic exam of the left toes. Views: Minimum 2 views. COMPARISON: None. FINDINGS: Bones/joints: There are no acute displaced fractures or subluxations. Osseous mineralization is normal. There are no inflammatory osseous erosive changes. The joint spaces are maintained without degenerative changes. No focal osseous lesions are identified. Soft tissues: Findings suggest mild soft tissue swelling of the 1st digit. No soft tissue air is identified. There is no radiopaque foreign body. IMPRESSION: No acute displaced fractures or subluxations identified. Dictated and Authenticated by: Constantine Christopher MD. Ordering:RANULFO Thomas MD
== END ==
PROVIDERS: PCP Nurse Practitioner Family; Visit Provider Nurse Practitioner Family
DX: M79.675 Pain in left toe(s) (principal)
CPT/HCPCS: 73660

== ENCOUNTER → 2023-12-29 08:18 | Outpatient (CLI) | payer OTHER, SELFPAY ==
--- NOTE | 2023-12-29 08:41 | DI.RAD_ITS ---
Exam(s) XR LUMBAR SPINE COMPLETE EXAM: XR LUMBAR SPINE COMPLETE CLINICAL HISTORY: low back pain M54.50 LOW BACK PAIN. TECHNIQUE: 2D digital imaging was performed of the lumbar spine. Five images were obtained. AP, la teral, right oblique, left oblique and L5-S1 spot views were obtained. COMPARISON: CR LUMBAR SPINE COMPLETE from 01/18/2013 FINDINGS: BONES: No fracture or destructive lesion. Small endplate osteophytes are seen at the superior endplat es of L4 and L5. No facet hypertrophy identified. There are postsurgical changes with posterior spina l rods and pedicle screws at L5-S1 and a prior L5-S1 discectomy. DISKS: Intervertebral disc spaces are maintained. ALIGNMENT: Lumbar spinal alignment is within normal limits. No spondylolysis or spondylolisthesis. SOFT TISSUE: Normal. IMPRESSION: 1. Postsurgical changes at L5-S1. 2. Mild degenerative changes seen at L4 and L5. DATA REPOSITORY: RADIATION DOSE DELIVERED:
--- NOTE | 2023-12-29 08:41 | DI.RAD_ITS ---
Exam(s) XR THORACIC SPINE COMPLETE EXAM: XR THORACIC SPINE COMPLETE CLINICAL HISTORY: back pain M54.9 DORSALGIA. TECHNIQUE: 2D digital imaging was performed of the thoracic spine. Three views were obtained. AP, swimmer's and lateral views were obtained. COMPARISON: CR XR CHEST 2V PA LATERAL from 04/18/2018 FINDINGS: BONES: There is no fracture or destructive lesion. The vertebral bodies and posterior elements are un remarkable. DISKS:Alignment is within normal limits. Interverebral disc spaces are maintained. SOFT TISSUE: Visualized lungs are clear. IMPRESSION: Unremarkable radiographs of the thoracic spine. DATA REPOSITORY: RADIATION DOSE DELIVERED:
== END ==
PROVIDERS: PCP Nurse Practitioner Family; Visit Provider Nurse Practitioner Family
DX: M54.9 Dorsalgia, unspecified (principal); M54.50 Low back pain, unspecified; M51.36 Other intervertebral disc degeneration, lumbar region
CPT/HCPCS: 72072; 72110

== ENCOUNTER 2024-06-28 02:33 | Emergency (ER) | payer OTHER, MEDICAID, SELFPAY ==
[2024-06-28 02:35] VITALS: BP 150/86; PULSE 85; RESP 18; TEMP 35.9; O2SAT 100
--- NOTE | 2024-06-28 02:35 | W.ED.GENAD ---
Discharge Plan Disposition Patient Disposition: Home Condition: Good Discharge Details Clinical Impression: Back pain with right-sided radiculopathy Primary Care Provider: Markos Sandoval ED Provider: Yaya Ibarra Meds and New Rx's Prescriptions: New methocarbamol 500 mg tablet 500 - 1,000 mg PO TID PRN (Reason: spasms) Qty: 30 0RF methylprednisolone [Medrol (Marky)] 4 mg tablets,dose pack See Rx Instructions .ROUTE .COMPLEX Qty: 21 0RF Rx Instructions: orally per package directions ibuprofen 600 mg tablet 600 mg PO TID Qty: 20 0RF lidocaine 5 % adhesive patch,medicated 1 patch topical DAILY Qty: 15 0RF Rx Instructions: leave on most painful area for up to 12 hrs Continued lisinopril 20 mg tablet 20 mg PO DAILY Qty: 90 3RF Discontinued cyclobenzaprine 5 mg tablet 5 - 10 mg PO TID PRN (Reason: muscle spasm) Qty: 60 0RF Rx Instructions: Take 1 tablet by mouth three times a day as needed for back pain Discharge Instructions Instructions: Radiculopathy of the neck and back (including sciatica), Low Back Pain ED Additional Instructions: You were seen in the ED for low back pain with radiation of pain down the right leg. You have some evidence of nerve involvement with decreased sensation on the right. We will start you on a Medrol dose pack which should help with inflammation and swelling. You should alternate acetaminophen with ibuprofen every 4 hours as we discussed. You may use a lidocaine patch, 12 hours on 12 hours off. The methocarbamol is for muscle spasm. You may alternate heat with ice to see if this helps. Follow-up with primary care this week as referral to physical therapy as well as outpatient MRI given the subtle neurologic findings seems in order. Return to the ED for any increasing numbness, any weakness to the legs, bladder or bowel dysfunction, worsening pain. Stand Alone Forms: Work Release Referrals: Markos Sandoval, VOICE TEACHER [Primary Care Provider] - HPI General Mode of arrival: ambulatory. Date/Time Provider Initiated Documentation: 06/28/24 02:34. Limitations to Documentation: no limitations. Information obtained by: patient, RN notes reviewed and old records reviewed. HPI Narrative: Patient presents to ED with low back pain radiating down the right leg. Patient has had previous surgery in the L5-S1 area about 15 years ago. He has had intermittent problems with his back since then. More recently has been having worsening back pain that is pretty much been present since the summer. In the last couple of weeks it has become significantly worse. He is now having pain radiating down the right lower extremity as well as a decrease in sensation in the lateral thigh down the front of the dai to the top of the foot. Denies any bladder or bowel dysfunction. Denies any decrease in sensation in the perineal area. Unable to determine if he is having weakness or if pain is limiting use of his right leg. Denies any fever, abdominal pain, vomiting or diarrhea. Denies any urinary symptoms. Unable to get comfortable or sleep tonight and came in for evaluation. He did take acetaminophen and cyclobenzaprine this evening before going to bed. Related Data Home Medications ?Medication ?Instructions ?Recorded ?Confirmed lisinopril 20 mg tablet 20 mg PO DAILY #90 tabs 09/03/23 06/28/24 ibuprofen 600 mg tablet 600 mg PO TID #20 tabs 06/28/24 lidocaine 5 % topical patch 1 patch topical DAILY #15 ea 06/28/24 methocarbamol 500 mg tablet 500 - 1,000 mg (1 - 2 x 500 mg) PO 06/28/24 TID PRN spasms #30 tabs methylprednisolone 4 mg tablets in See Rx Instructions PO .COMPLEX 06/28/24 a dose pack (Medrol (Marky)) #21 dose pk Previous Rx's ?Medication ?Instructions ?Recorded lisinopril 20 mg tablet 20 mg PO DAILY #90 tabs 09/03/23 ibuprofen 600 mg tablet 600 mg PO TID #20 tabs 06/28/24 lidocaine 5 % topical patch 1 patch topical DAILY #15 ea 06/28/24 methocarbamol 500 mg tablet 500 - 1,000 mg (1 - 2 x 500 mg) PO 06/28/24 TID PRN spasms #30 tabs methylprednisolone 4 mg tablets in See Rx Instructions PO .COMPLEX 06/28/24 a dose pack (Medrol (Marky)) #21 dose pk Allergies Allergy/AdvReac Type Severity Reaction Status Date / Time morphine Allergy Intermediate unknown Verified 06/28/24 02:38 General MAYRA: 4 Review of Systems Narrative: Per HPI Exam Narrative Exam Narrative: Const: WDWN male in NAD. VS per triage. HEENT: NC/AT. Normal facial exam. Neck: Supple. Trachea midline. Lungs: Normal respiratory effort. Back: No midline tenderness. Decrease ROM lower back due to pain. Neuro: A+O x 3. Normal speech, mentation. Cranial nerves II - XII grossly intact. Subtle decrease in sensation along the right L4-L5 dermatome distribution. Slight weakness with dorsiflexion of right ankle and big toe. 3+ patellar reflexes symmetric, 1+ Achilles reflexes symmetric. Ext: No C/C/E. Medical Decision Making Patient presenting to ED with worsening low back pain now with associated right radiculopathy most consistent with L4-L5 dermatome. Some subtle decrease in sensation as well as slight weakness suggesting nerve impingement. No overt sign of cauda equina. Will need close follow-up and outpatient MRI hopefully within the next couple of weeks. He states he has been referred to [facility] but has not heard anything back from them. He is given IM orphenadrine and ketorolac here as well as lidocaine patch placed. He will be discharged home with prescriptions for Medrol Dosepak. He does not think the cyclobenzaprine has been helping so we will change to methocarbamol. Lidocaine patches, heat alternating with ice, gentle stretching recommended. Alternate acetaminophen with ibuprofen every 4 hours. Would likely benefit with physical therapy referral which he can discuss with primary care as well. Work note provided for rest of week. Strict return precautions provided. Medical Records Medical records reviewed: Yes I reviewed the patient's medical records. Medical records narrative: office note and back x-ray results from summer 2023 [facility] All Active Problems (Updated 06/28/24 @ 03:36 by Yaya Ibarra MD) Back pain with right-sided radiculopathy (Acute) Obesity (Chronic) Tobacco chew use (Acute 01/05/17) Migraine without aura and without status migrainosus, not intractable (Chronic 01/05/17) Rarely Medical History (Updated 06/28/24 @ 03:36 by Yaya Ibarra MD) Depression (12/01/13) intol. to Zoloft and Effexor Essential hypertension Surgical History H/O spinal fusion Family History FAMILY HISTORY Essential hypertension Personal history of malignant neoplasm Depression Stroke Social History Smoking/Tobacco Use Status: Current every day Tobacco Type: e-cigarettes and smokeless tobacco Tobacco: How many years used: 10 Smokeless tobacco user: chewing tobacco Quit status: quit date established Smoking risk assessment performed?: Yes Alcohol Intake: former Substance use type: does not use Caregiver/Support person: No Household members: spouse and children Housing: house Communication Needs: None Do you need help understanding health information?: Never Pets and animals: Yes Pets and animals: cat(s) and dog(s) Sexually active: Yes Do you think of yourself as: straight/heterosexual Current gender identity: male What is your relationship status?: How often do you talk on the phone with friends or family?: once per week How often do you get together with friends or relatives?: once per week How often do you attend roman catholic or mandaeism services?: 1-3 times per year Do you belong to any clubs or organized social groups?: no Panel score (0-1 are the most socially isolated patients): 1 What type of physical activity do you participate in: none Frequency: does not exercise Antionette/Moravian: No preference Special antionette needs: No Seatbelt use: sometimes Drive intox or ride w/intox truss driver helper: No Do you feel safe at home: Yes Do you feel safe in your relationship?: Yes
[2024-06-28] MEDS: Ketorolac 30 MG/ML VIAL IM (03:00)
[2024-06-28] MEDS: Orphenadrine 60 MG/2 ML VIAL IM (03:00)
[2024-06-28] MEDS: Lidocaine 5% Patch 1 PATCH TP (03:00)
--- NOTE | 2024-06-28 09:57 | NUR.NOTE ---
pt's chart was accessed to view prescriptions that were sent to pharmacy to confirm they had been received. Nursing Note:
== END 2024-06-28 03:52 | disposition home or self-care (01) ==
PROVIDERS: Emergency Provider Emergency Medicine; PCP Nurse Practitioner Family
DX: M54.16 Radiculopathy, lumbar region (principal); I10 Essential (primary) hypertension; F17.290 Nicotine dependence, other tobacco product, uncomplicated; Z98.1 Arthrodesis status
CPT/HCPCS: 96372; 99284; J2360; 99283; J1885

== ENCOUNTER 2024-07-07 11:43 | Outpatient (CLI) | payer OTHER, MEDICAID, SELFPAY ==
[2024-07-07 11:40] LABS: Hemoglobin A1C 5.6 % (<5.7)
[2024-07-07 11:42] LABS: Calculated LDL 80 mg/dL (<100); Cholesterol 156 mg/dL (<200); Estimated GFR 101.92 (mL/min/1.73m2); HDL Cholesterol 48 mg/dL (40-60); Potassium 4.1 mmol/L (3.5-5.1); Triglyceride 141 mg/dL (<150)
== END 2024-07-07 11:44 | disposition home or self-care (01) ==
LOC: LBO 11:43
PROVIDERS: PCP Nurse Practitioner Family; Visit Provider Nurse Practitioner Family
DX: I10 Essential (primary) hypertension (principal); Z13.220 Encounter for screening for lipoid disorders; Z13.1 Encounter for screening for diabetes mellitus
CPT/HCPCS: 36415; 80061; 82565; 83036; 84132

== ENCOUNTER 2024-08-24 00:57 | Outpatient (CLI) | payer MEDICAID, SELFPAY ==
--- NOTE | 2024-08-24 | DI.US_ITS ---
Exam(s) US THYROID EXAM: US THYROID CLINICAL HISTORY: THYROID LESION ON RECENT MRI C SPINE, E07.9. TECHNIQUE: Ultrasound thyroid performed using standard protocol. COMPARISON: MR MR SPINE CERVICAL WO CONTRAST from 07/21/2024 FINDINGS: ISTHMUS: 4 mm RIGHT LOBE: Size: 4.9 x 1.9 x 1.9 cm Echogenicity: Normal. Vascularity: Normal. Nodules: 1. 9 millimeter isoechoic nodule in the mid thyroid without echogenic foci, TR 3. 2. 1 x 0.7 x 1 centimeter mixed cystic/solid lesion at the lower pole smooth margins without echogen ic foci, TR 2. 1. 1.3 x 1.1 x 1.4 centimeter mixed cystic and solid smoothly marginated nodule with single echogenic focus, TR 3. LEFT LOBE: Size: 4.8 x 1.6 x 1.7 cm Echogenicity: Normal. Vascularity: Normal. Nodules: None. OTHER FINDINGS: None. IMPRESSION: Right thyroid nodules. Due to small size and appearance, no FNA or biopsy is recommended. DATA REPOSITORY:
== END 2024-08-24 01:17 ==
LOC: DI 00:57
PROVIDERS: PCP Nurse Practitioner Family; Visit Provider Nurse Practitioner Family
DX: E07.9 Disorder of thyroid, unspecified (principal)
CPT/HCPCS: 76536